=== PATIENT | male | born 1980 | race Caucasian/White ===

== ENCOUNTER 2023-12-03 16:43 | Inpatient (IN) | payer MEDICARE, MEDICAID ==
--- NOTE | 2023-12-03 16:45 | ED ---
General Adult HPI - General Source: patient, police Mode of arrival: ambulatory Limitations: no limitations <Zia Camacho - Last Filed: 12/03/23 23:22> <Yesi Iqbal - Last Filed: 12/10/23 00:08> - General Stated complaint: Petitioned/Mental health Time Seen by Provider: 12/03/23 16:44 - History of Present Illness Initial comments: 43-year-old male presenting with mental health petition (Zia Camacho) 43-year-old male with past medical history of alcoholism who presents emergency department with police. Patient was in the park. He was significantly intoxicated. He was stating that he was suicidal and was also threatening to harm some children that were in the park. Bystanders called EMS. Patient states he has been hospitalized multiple times for his mental health as well as for his alcoholism. He states he is homeless and jobless. He is hopeless and wants to . He denies attempting to harm himself. He does admit to harm others. Patient admits to drinking heavily today. No other alleviating, precipitating modifying factors (Yesi Iqbal) - Related Data Home Medications Medication Instructions Recorded Confirmed DULoxetine HCL [Cymbalta] 30 mg PO DAILY 12/04/23 12/04/23 oxyCODONE-APAP 10-325MG [Percocet 1 tab PO Q8H PRN 12/04/23 12/04/23 10-325 mg] Allergies Allergy/AdvReac Type Severity Reaction Status Date / Time ibuprofen [From Motrin] Allergy Rash/Hives Verified 12/04/23 12:00 Review of Systems ROS Other: All systems not noted in ROS Statement are negative. <Zia Camacho - Last Filed: 12/03/23 23:22> ROS Other: All systems not noted in ROS Statement are negative. <Yesi Iqbal - Last Filed: 12/10/23 00:08> ROS Statement: Those systems with pertinent positive or pertinent negative responses have been documented in the HPI. General Exam <Zia Camacho - Last Filed: 12/03/23 23:22> General appearance: alert, appears intoxicated Head exam: Present: atraumatic, normocephalic, normal inspection Eye exam: Present: normal appearance, PERRL, EOMI. Absent: scleral icterus, conjunctival injection, periorbital swelling ENT exam: Present: normal exam, mucous membranes moist Neck exam: Present: normal inspection. Absent: tenderness, meningismus, lymphadenopathy Respiratory exam: Present: normal lung sounds bilaterally. Absent: respiratory distress, wheezes, rales, rhonchi, stridor Cardiovascular Exam: Present: regular rate, normal rhythm, normal heart sounds. Absent: systolic murmur, diastolic murmur, rubs, gallop, clicks GI/Abdominal exam: Present: soft, normal bowel sounds. Absent: distended, te nderness, guarding, rebound, rigid Extremities exam: Present: normal inspection, full ROM, normal capillary refill. Absent: tenderness, pedal edema, joint swelling, calf tenderness Back exam: Present: normal inspection Neurological exam: Present: alert, oriented X3, CN II-XII intact Psychiatric exam: Present: depressed, agitated Skin exam: Present: warm, dry, intact, normal color. Absent: rash <Yesi Iqbal - Last Filed: 12/10/23 00:08> - General Exam Comments Initial Comments: Visual Physical Exam Vital signs reviewed General: Well-appearing, nontoxic, no acute distress. Head: Normocephalic, atraumatic Eyes: PERRLA, EOMI ENT: Airway patent Chest: Nonlabored breathing Skin: No visual rash, normal skin tone Neuro: Alert and oriented 3 Musculoskeletal: No gross abnormalities (Zia Camacho) Course Vital Signs 12/03/23 12/04/23 12/04/23 16:46 08:43 17:28 Temperature 97.9 F 98.2 F Pulse Rate 97 98 74 Pulse Rate [ Right Sitting Pulse Oximetery ] Respiratory 18 16 16 Rate Blood Pressure 190/121 167/100 100/60 Blood Pressure [Right Arm Sitting] O2 Sat by Pulse 96 97 97 Oximetry 12/04/23 18:15 Temperature 97.8 F Pulse Rate Pulse Rate [ 82 Right Sitting Pulse Oximetery ] Respiratory 18 Rate Blood Pressure Blood Pressure 119/66 [Right Arm Sitting] O2 Sat by Pulse 96 Oximetry Medical Decision Making <Zia Camacho - Last Filed: 12/03/23 23:22> - Lab Data Result diagrams: 12/04/23 15:43 12/04/23 15:43 <Yesi Iqbal - Last Filed: 12/10/23 00:08> - Medical Decision Making I performed the quick note portion of this visit, electronically signed Zia Camacho PA-C (Zia Camacho) Was pt. sent in by a medical professional or institution (GINO Varela, RADIOISOTOPE TECHNOLOGIST, urgent care, hospital, or jail...) When possible be specific @ -Patient brought in by police Did you speak to anyone other than the patient for history (EMS, parent, family, police, friend...)? What history was obtained from this source @ -Police Did you review nursing and triage notes (agree or disagree)? Why? @ -I reviewed and agree with nursing and triage notes Were old charts reviewed (outside hosp., previous admission, EMS record, old EKG, old radiological studies, urgent care reports/EKG's, jail records)? Report findings @ -No old charts were reviewed Differential Diagnosis (chest pain, altered mental status, abdominal pain women, abdominal pain men, vaginal bleeding, weakness, fever, dyspnea, syncope, headache, dizziness, GI bleed, back pain, seizure, CVA, palpatations, mental health, musculoskeletal)? @ -Differential Mental Health Depression, anxiety, bipolar, psychosis, schizophrenia, borderline personality, situational depression, adjustment disorder, behavioral disorder, brain tumor, malingering, substance abuse, encephalopathy, medication reaction, dementia, hypothyroidism, degenerative neurologic disorder, lupus.... This is not meant to be all-inclusive list EKG interpreted by me (3pts min.). @ -Not done X-rays interpreted by me (1pt min.). @ -None done CT interpreted by me (1pt min.). @ -None done U/S interpreted by me (1pt. min.). @ -None done What testing was considered but not performed or refused? (CT, X-rays, U/S, labs)? Why? @ -None What meds were considered but not given or refused? Why? @ -None Did you discuss the management of the patient with other professionals (professionals i.e. GINO Varela, RADIOISOTOPE TECHNOLOGIST, lab, RT, psych nurse, vp digital marketing social media and crm, cold roller, teacher, alumni relations officer, window caser)? Give summary @- Spoke with the EPS nurse Was smoking cessation discussed for >3mins.? @ -No Was critical care preformed (if so, how long)? @ -No Were there social determinants of health that impacted care today? How? (Homelessness, low income, unemployed, alcoholism, drug addiction, transportation, low edu. Level, literacy, decrease access to med. care, fci, rehab)? @ -Homelessness, alcoholism Was there de-escalation of care discussed even if they declined (Discuss DNR or withdrawal of care, Hospice)? DNR status @ -No What co-morbidities impacted this encounter? (DM, HTN, Smoking, COPD, CAD, Cancer, CVA, ARF, Chemo, Hep., AIDS, mental health diagnosis, sleep apnea, morbid obesity)? @ -Alcoholism Was patient admitted / discharged? Hospital course, mention meds given and route, prescriptions, significant lab abnormalities, going to OR and other pertinent info. @ -Upon arrival patient was seen and evaluated in room 13. Thorough history and physical exam was performed. Patient is petitioned. We do await sobriety and have EPS evaluate the patient. Patient requires admission. Undiagnosed new problem with uncertain prognosis? @ -No Drug Therapy requiring intensive monitoring for toxicity (Heparin, Nitro, Insulin, Cardizem)? @ -No Were any procedures done? @ -No Diagnosis/symptom? @ -Acute depression, acute alcohol intoxication, suicidal ideations Acute, or Chronic, or Acute on Chronic? @ -Acute Uncomplicated (without systemic symptoms) or Complicated (systemic symptoms)? @ -Complicated Side effects of treatment? @ -No Exacerbation, Progression, or Severe Exacerbation? @ -No Poses a threat to life or bodily function? How? (Chest pain, USA, AR, pneumonia, PE, COPD, DKA, ARF, appy, cholecystitis, CVA, Diverticulitis, Homicidal, Suicidal, threat to staff... and all critical care pts) @ -Yes patient is suicidal (Yesi Iqbal) - Lab Data Lab Results 12/03/23 12/03/23 12/04/23 Range/Units 18:14 19:50 13:28 WBC (3.8-10.6) k/uL RBC (4.30-5.90) m/uL Hgb (13.0-17.5) gm/dL Hct (39.0-53.0) % MCV (80.0-100.0) fL MCH (25.0-35.0) pg MCHC (31.0-37.0) g/dL RDW (11.5-15.5) % Plt Count (150-450) k/uL MPV Neutrophils % % Lymphocytes % % Monocytes % % Eosinophils % % Basophils % % Neutrophils # (1.3-7.7) k/uL Lymphocytes # (1.0-4.8) k/uL Monocytes # (0-1.0) k/uL Eosinophils # (0-0.7) k/uL Basophils # (0-0.2) k/uL Sodium (137-145) mmol/L Potassium (3.5-5.1) mmol/L Chloride (98-107) mmol/L Carbon Dioxide (22-30) mmol/L Anion Gap mmol/L BUN (9-20) mg/dL Creatinine (0.66-1.25) mg/dL Est GFR (CKD-EPI)AfAm (>60 ml/min/1.73 sqM) Est GFR (CKD-EPI)NonAf (>60 ml/min/1.73 sqM) Glucose (74-99) mg/dL Estimated Ave Glu mg/dL mg/dL Hemoglobin A1c (<=6.0) % Calcium (8.4-10.2) mg/dL Total Bilirubin (0.2-1.3) mg/dL AST (17-59) U/L ALT (4-49) U/L Alkaline Phosphatase (38-126) U/L Total Protein (6.3-8.2) g/dL Albumin (3.5-5.0) g/dL Triglycerides (0.00-149.00) mg/dL Cholesterol (0.00-200.00) mg/dL LDL Cholesterol, Calc (0.0-131.0) mg/dL VLDL Cholesterol, Calc (5.00-40.00) mg/dL HDL Cholesterol (40.00-60.00) mg/dL Cholesterol/HDL Ratio Ratio TSH (0.465-4.680) mIU/L Urine Color Colorless Urine Appearance Clear (Clear) Urine pH 6.0 (5.0-8.0) Ur Specific [place] 1.010 (1.001-1.035) Urine Protein Negative (Negative) Urine Glucose (UA) Negative (Negative) Urine Ketones Negative (Negative) Urine Blood Negative (Negative) Urine Nitrite Negative (Negative) Urine Bilirubin Negative (Negative) Urine Urobilinogen <2.0 (<2.0) mg/dL Ur Leukocyte Esterase Negative (Negative) Urine Opiates Screen Not Detected (NotDetected) Ur Oxycodone Screen Not Detected (NotDetected) Urine Methadone Screen Not Detected (NotDetected) Ur Barbiturates Screen Not Detected (NotDetected) U Tricyclic Antidepress Not Detected (NotDetected) Ur Phencyclidine Scrn Not Detected (NotDetected) Ur Amphetamines Screen Not Detected (NotDetected) U Methamphetamines Scrn Not Detected (NotDetected) U Benzodiazepines Scrn Not Detected (NotDetected) Urine Cocaine Screen Not Detected (NotDetected) U Marijuana (THC) Screen Detected H (NotDetected) Serum Alcohol 290 H* mg/dL Influenza Type A (PCR) Not Detected (Not Detectd) Influenza Type B (PCR) Not Detected (Not Detectd) RSV (PCR) Not Detected (Not Detectd) SARS-CoV-2 (PCR) Not Detected (Not Detectd) 12/04/23 12/04/23 12/04/23 Range/Units 15:43 15:43 15:43 WBC 5.9 (3.8-10.6) k/uL RBC 4.67 (4.30-5.90) m/uL Hgb 13.8 (13.0-17.5) gm/dL Hct 40.6 (39.0-53.0) % MCV 86.9 (80.0-100.0) fL MCH 29.5 (25.0-35.0) pg MCHC 33.9 (31.0-37.0) g/dL RDW 13.7 (11.5-15.5) % Plt Count 188 (150-450) k/uL MPV 8.0 Neutrophils % 54 % Lymphocytes % 28 % Monocytes % 11 % Eosinophils % 4 % Basophils % 1 % Neutrophils # 3.2 (1.3-7.7) k/uL Lymphocytes # 1.7 (1.0-4.8) k/uL Monocytes # 0.6 (0-1.0) k/uL Eosinophils # 0.2 (0-0.7) k/uL Basophils # 0.0 (0-0.2) k/uL Sodium 140 (137-145) mmol/L Potassium 4.1 (3.5-5.1) mmol/L Chloride 106 (98-107) mmol/L Carbon Dioxide 28 (22-30) mmol/L Anion Gap 6 mmol/L BUN 15 (9-20) mg/dL Creatinine 0.73 (0.66-1.25) mg/dL Est GFR (CKD-EPI)AfAm >90 (>60 ml/min/1.73 sqM) Est GFR (CKD-EPI)NonAf >90 (>60 ml/min/1.73 sqM) Glucose 138 H (74-99) mg/dL Estimated Ave Glu mg/dL 120 mg/dL Hemoglobin A1c 5.8 (<=6.0) % Calcium 8.9 (8.4-10.2) mg/dL Total Bilirubin 0.7 (0.2-1.3) mg/dL AST 65 H (17-59) U/L ALT 45 (4-49) U/L Alkaline Phosphatase 66 (38-126) U/L Total Protein 6.5 (6.3-8.2) g/dL Albumin 3.9 (3.5-5.0) g/dL Triglycerides 52.80 (0.00-149.00) mg/dL Cholesterol 131.00 (0.00-200.00) mg/dL LDL Cholesterol, Calc 57.2 (0.0-131.0) mg/dL VLDL Cholesterol, Calc 10.56 (5.00-40.00) mg/dL HDL Cholesterol 63.20 H (40.00-60.00) mg/dL Cholesterol/HDL Ratio 2.07 Ratio TSH 0.228 L (0.465-4.680) mIU/L Urine Color Urine Appearance (Clear) Urine pH (5.0-8.0) Ur Specific [place] (1.001-1.035) Urine Protein (Negative) Urine Glucose (UA) (Negative) Urine Ketones (Negative) Urine Blood (Negative) Urine Nitrite (Negative) Urine Bilirubin (Negative) Urine Urobilinogen (<2.0) mg/dL Ur Leukocyte Esterase (Negative) Urine Opiates Screen (NotDetected) Ur Oxycodone Screen (NotDetected) Urine Methadone Screen (NotDetected) Ur Barbiturates Screen (NotDetected) U Tricyclic Antidepress (NotDetected) Ur Phencyclidine Scrn (NotDetected) Ur Amphetamines Screen (NotDetected) U Methamphetamines Scrn (NotDetected) U Benzodiazepines Scrn (NotDetected) Urine Cocaine Screen (NotDetected) U Marijuana (THC) Screen (NotDetected) Serum Alcohol mg/dL Influenza Type A (PCR) (Not Detectd) Influenza Type B (PCR) (Not Detectd) RSV (PCR) (Not Detectd) SARS-CoV-2 (PCR) (Not Detectd) Disposition <Zia Camacho - Last Filed: 12/03/23 23:22> Is patient prescribed a controlled substance at d/c from ED?: No <Yesi Iqbal - Last Filed: 12/10/23 00:08> Clinical Impression: Depression, Suicidal ideation Disposition: ADMITTED IP TO THIS HOSP Condition: Good
[2023-12-03] MEDS: OLANZapine 10 MG VIAL IM STA (18:05)
[2023-12-03 18:37] LABS: Appearance,Urine Clear (Clear); Bilirubin,Urine Negative (Negative); Blood,Urine Negative (Negative); Color,Urine Colorless; Glucose,Urine (UA) Negative (Negative); Ketones,Urine Negative (Negative); Leukocyte Esterase,Urine Negative (Negative); Nitrite,Urine Negative (Negative); Protein,Urine Negative (Negative); Urobilinogen,Urine <2.0 mg/dL (<2.0)
[2023-12-03 19:44] LABS: Amphetamine Screen,Urine Not Detected (NotDetected); Barbiturate Screen,Urine Not Detected (NotDetected); Benzodiazepines Screen,Urine Not Detected (NotDetected); Cocaine Screen,Urine Not Detected (NotDetected); Methadone Screen, Urine Not Detected (NotDetected); Opiate Screen,Urine Not Detected (NotDetected); Oxycodone Screen, Urine Not Detected (NotDetected); Phencyclidine Screen,Urine Not Detected (NotDetected); Tricyclic Antidepressant,Urine Not Detected (NotDetected); Urn Cannabinoid Scrn Detected (NotDetected)
[2023-12-04] MEDS ORDERED: LORazepam 0.5 MG TAB PO PRN (01:48)
[2023-12-04] MEDS ORDERED: LORazepam 1 MG TAB PO PRN ×3 (01:48→17:48)
[2023-12-04] MEDS: THIAMINE 100 MG/ML 2 ML VIAL IM STA (03:13)
[2023-12-04] MEDS: LORazepam 1 MG TAB PO PRN ×3 (08:41→21:41)
[2023-12-04 15:56] LABS: Basophils % (A) 1 %; Eosinophils # (A) 0.2 k/uL (0-0.7); Eosinophils % (A) 4 %; HCT 40.6 % (39.0-53.0); HGB 13.8 gm/dL (13.0-17.5); Lymphocytes # (A) 1.7 k/uL (1.0-4.8); Lymphocytes % (A) 28 %; MCH 29.5 pg (25.0-35.0); MCHC 33.9 g/dL (31.0-37.0); MCV 86.9 fL (80.0-100.0); Monocytes # (A) 0.6 k/uL (0-1.0); Monocytes % (A) 11 %; Neutrophils # (A) 3.2 k/uL (1.3-7.7); Neutrophils % (A) 54 %; Platelet Count 188 k/uL (150-450); RBC 4.67 m/uL (4.30-5.90); RDW 13.7 % (11.5-15.5); WBC 5.9 k/uL (3.8-10.6)
[2023-12-04 16:10] LABS: ALT 45 U/L (4-49); AST 65 U/L (17-59); African American GFR (CKD) >90 (>60 ml/min/1.73 sqM); Albumin 3.9 g/dL (3.5-5.0); Alkaline Phosphatase 66 U/L (38-126); Anion Gap 6 mmol/L; Blood Urea Nitrogen 15 mg/dL (9-20); Calcium 8.9 mg/dL (8.4-10.2); Carbon Dioxide 28 mmol/L (22-30); Chloride 106 mmol/L (98-107); Glucose 138 mg/dL (74-99); Non-African American GFR(CKD) >90 (>60 ml/min/1.73 sqM); Potassium 4.1 mmol/L (3.5-5.1); Sodium 140 mmol/L (137-145); Total Bilirubin 0.7 mg/dL (0.2-1.3); Total Protein 6.5 g/dL (6.3-8.2)
[2023-12-04] MEDS ORDERED: MAGNESIUM HYDROXIDE 2,400 MG/30 ML CUP PO PRN (17:48)
[2023-12-04] MEDS ORDERED: ACETAMINOPHEN TAB 325 MG TAB PO PRN (17:48)
[2023-12-04] MEDS ORDERED: MAG HYDROX/AL HYDROX/SIMETH 355 ML BOTTLE PO PRN (17:48)
[2023-12-04] MEDS ORDERED: HALOPERIDOL LACTATE 5 MG/ML 1 ML VIAL IM PRN (17:48)
[2023-12-04] MEDS ORDERED: LORazepam 2 MG/ML INJ IM PRN (17:48)
[2023-12-04] MEDS ORDERED: haloperidoL 5 MG TAB PO PRN (17:48)
[2023-12-04 19:03] VITALS: TEMP 97.8
[2023-12-05 02:31] LABS: Chol/HDL Ratio 2.07 Ratio; LDL Cholesterol,Calculated 57.2 mg/dL (0.0-131.0); VLDL Calculation 10.56 mg/dL (5.00-40.00)
[2023-12-05] MEDS: DULoxetine HCL 30 MG CAPSULE.DR PO SCH (08:37)
[2023-12-05] MEDS: NICOTINE 14MG/24HR PATCH TRANSDERM SCH (08:47)
[2023-12-05] MEDS: NICOTINE GUM (POLACRILEX) 2 MG GUM BUCCAL PRN (09:00)
[2023-12-05] MEDS ORDERED: THIAMINE 100 MG TAB PO SCH (09:00)
--- NOTE | 2023-12-05 12:02 | P.HP ---
Psychiatric H&P - . H&P Date: 12/05/23 History & Physical: Allergies Allergy/AdvReac Type Severity Reaction Status Date / Time ibuprofen [From Motrin] Allergy Rash/Hives Verified 12/04/23 12:00 Vital Signs Temp 97.8 F 12/04/23 18:15 Pulse 75 12/05/23 08:40 Resp 18 12/04/23 18:15 BP 113/76 12/05/23 08:40 Pulse Ox 96 12/04/23 18:15 FiO2 Laboratory Last Values WBC 5.9 k/uL (3.8-10.6) 12/04/23 15:43 RBC 4.67 m/uL (4.30-5.90) 12/04/23 15:43 Hgb 13.8 gm/dL (13.0-17.5) 12/04/23 15:43 Hct 40.6 % (39.0-53.0) 12/04/23 15:43 MCV 86.9 fL (80.0-100.0) 12/04/23 15:43 MCH 29.5 pg (25.0-35.0) 12/04/23 15:43 MCHC 33.9 g/dL (31.0-37.0) 12/04/23 15:43 RDW 13.7 % (11.5-15.5) 12/04/23 15:43 Plt Count 188 k/uL (150-450) 12/04/23 15:43 MPV 8.0 12/04/23 15:43 Neutrophils % 54 % 12/04/23 15:43 Lymphocytes % 28 % 12/04/23 15:43 Monocytes % 11 % 12/04/23 15:43 Eosinophils % 4 % 12/04/23 15:43 Basophils % 1 % 12/04/23 15:43 Neutrophils # 3.2 k/uL (1.3-7.7) 12/04/23 15:43 Lymphocytes # 1.7 k/uL (1.0-4.8) 12/04/23 15:43 Monocytes # 0.6 k/uL (0-1.0) 12/04/23 15:43 Eosinophils # 0.2 k/uL (0-0.7) 12/04/23 15:43 Basophils # 0.0 k/uL (0-0.2) 12/04/23 15:43 Sodium 140 mmol/L (137-145) 12/04/23 15:43 Potassium 4.1 mmol/L (3.5-5.1) 12/04/23 15:43 Chloride 106 mmol/L (98-107) 12/04/23 15:43 Carbon Dioxide 28 mmol/L (22-30) 12/04/23 15:43 Anion Gap 6 mmol/L 12/04/23 15:43 BUN 15 mg/dL (9-20) 12/04/23 15:43 Creatinine 0.73 mg/dL (0.66-1.25) 12/04/23 15:43 Est GFR (CKD-EPI)AfAm >90 (>60 ml/min/1.73 sqM) 12/04/23 15:43 Est GFR (CKD-EPI)NonAf >90 (>60 ml/min/1.73 sqM) 12/04/23 15:43 Glucose 138 mg/dL (74-99) H 12/04/23 15:[address] Glu mg/dL 120 mg/dL 12/04/23 15:43 Hemoglobin A1c 5.8 % (<=6.0) 12/04/23 15:43 Calcium 8.9 mg/dL (8.4-10.2) 12/04/23 15:43 Total Bilirubin 0.7 mg/dL (0.2-1.3) 12/04/23 15:43 AST 65 U/L (17-59) H 12/04/23 15:43 ALT 45 U/L (4-49) 12/04/23 15:43 Alkaline Phosphatase 66 U/L (38-126) 12/04/23 15:43 Total Protein 6.5 g/dL (6.3-8.2) 12/04/23 15:43 Albumin 3.9 g/dL (3.5-5.0) 12/04/23 15:43 Triglycerides 52.80 mg/dL (0.00-149.00) 12/04/23 15:43 Cholesterol 131.00 mg/dL (0.00-200.00) 12/04/23 15:43 LDL Cholesterol, Calc 57.2 mg/dL (0.0-131.0) 12/04/23 15:43 VLDL Cholesterol, Calc 10.56 mg/dL (5.00-40.00) 12/04/23 15:43 HDL Cholesterol 63.20 mg/dL (40.00-60.00) H 12/04/23 15:43 Cholesterol/HDL Ratio 2.07 Ratio 12/04/23 15:43 TSH 0.228 mIU/L (0.465-4.680) L 12/04/23 15:43 Urine Color Colorless 12/03/23 18:14 Urine Appearance Clear (Clear) 12/03/23 18:14 Urine pH 6.0 (5.0-8.0) 12/03/23 18:14 Ur Specific [place] 1.010 (1.001-1.035) 12/03/23 18:14 Urine Protein Negative (Negative) 12/03/23 18:14 Urine Glucose (UA) Negative (Negative) 12/03/23 18:14 Urine Ketones Negative (Negative) 12/03/23 18:14 Urine Blood Negative (Negative) 12/03/23 18:14 Urine Nitrite Negative (Negative) 12/03/23 18:14 Urine Bilirubin Negative (Negative) 12/03/23 18:14 Urine Urobilinogen <2.0 mg/dL (<2.0) 12/03/23 18:14 Ur Leukocyte Esterase Negative (Negative) 12/03/23 18:14 Urine Opiates Screen Not Detected (NotDetected) 12/03/23 18:14 Ur Oxycodone Screen Not Detected (NotDetected) 12/03/23 18:14 Urine Methadone Screen Not Detected (NotDetected) 12/03/23 18:14 Ur Barbiturates Screen Not Detected (NotDetected) 12/03/23 18:14 U Tricyclic Antidepress Not Detected (NotDetected) 12/03/23 18:14 Ur Phencyclidine Scrn Not Detected (NotDetected) 12/03/23 18:14 Ur Amphetamines Screen Not Detected (NotDetected) 12/03/23 18:14 U Methamphetamines Scrn Not Detected (NotDetected) 12/03/23 18:14 U Benzodiazepines Scrn Not Detected (NotDetected) 12/03/23 18:14 Urine Cocaine Screen Not Detected (NotDetected) 12/03/23 18:14 U Marijuana (THC) Screen Detected (NotDetected) H 12/03/23 18:14 Serum Alcohol 290 mg/dL H* 12/03/23 19:50 Influenza Type A (PCR) Not Detected (Not Detectd) 12/04/23 13:28 Influenza Type B (PCR) Not Detected (Not Detectd) 12/04/23 13:28 RSV (PCR) Not Detected (Not Detectd) 12/04/23 13:28 SARS-CoV-2 (PCR) Not Detected (Not Detectd) 12/04/23 13:28 12/05/23 11:57 Active Medications Acetaminophen (Acetaminophen Tab 325 Mg Tab) 650 mg PO Q4HR PRN PRN Reason: Mild Pain (Scale 1 to 3) Al Hydroxide/Mg Hydroxide (Mag Hydrox/Al Hydrox/Simeth 355 Ml Bottle) 30 ml PO Q4HR PRN PRN Reason: GI Upset Chlordiazepoxide HCl (Chlordiazepoxide 10 Mg Cap) 30 mg PO TID [facility] Last Admin: 12/05/23 09:01 Dose: 30 mg Duloxetine HCl (Duloxetine Hcl 30 Mg Capsule.Dr) 30 mg PO DAILY [facility] Last Admin: 12/05/23 08:37 Dose: 30 mg Haloperidol (Haloperidol 5 Mg Tab) 5 mg PO Q6HR PRN PRN Reason: Agitation or Acute Psychosis Haloperidol Lactate (Haloperidol Lactate 5 Mg/Ml 1 Ml Vial) 5 mg IM Q6HR PRN PRN Reason: Agitation or Acute Psychosis Lorazepam (Lorazepam 1 Mg Tab) 1 mg PO Q6HR PRN PRN Reason: Agitation or Acute Anxiety Lorazepam (Lorazepam 2 Mg/Ml Inj) 1 mg IM Q6HR PRN PRN Reason: Agitation or Acute Anxiety Lorazepam (Lorazepam 1 Mg Tab) 1 mg PO Q6HR PRN PRN Reason: CIWA 8 or 9 Lorazepam (Lorazepam 1 Mg Tab) 2 mg PO Q6HR PRN PRN Reason: Ciwa greater than 10 Last Admin: 12/05/23 08:39 Dose: 2 mg Magnesium Hydroxide (Magnesium Hydroxide 2,400 Mg/30 Ml Cup) 2,400 mg PO DAILY PRN PRN Reason: Constipation Nicotine (Nicotine 14mg/24hr Patch) 1 patch TRANSDERM DAILY [facility] Last Admin: 12/05/23 08:47 Dose: Not Given Nicotine Polacrilex (Nicotine Gum (Polacrilex) 2 Mg Gum) 2 mg BUCCAL Q2HR PRN PRN Reason: Nicotine Cravings Last Admin: 12/05/23 11:06 Dose: 2 mg This is a psychiatric assessment on Param Hurd was a 43-year-old male and hopeless that he has had over 30 hospitalizations Patient reports that he has been in and out of institutions and that he is unable to function adequately due to his alcohol and substance use problems Patient initially reported that he had stopped using drugs but when on further inquiry states that he had used heroin about a week ago Patient was picked up by the police for a local park where he was found to be intoxicated Patient also had reported that he was suicidal and was also threatening to harm some children never park Bystanders called EMS. Patient states he has been hospitalized multiple times for his mental health as well as for his alcoholism. He states he is homeless and jobless. He is hopeless and wants to . He denies attempting to harm himself. He does admit to harm others. Patient admits to drinking heavily before the hospitalization No other alleviating, precipitating modifying factors He says that he is currently homeless, staying with his son for Past history personal social history is as described above She remains very vague and superficial historian Patient stated that he currently takes Cymbalta Mental status exam: General Appearance: Patient appears to be stated age, unkempt and dirty looking Behavior: Patient is loud and demanding Speech: Patient's speech is fluent and non-pressured. Mood/Affect: Patient reports his mood is fair", affect is congruent and constricted. Suicidality/Homicidality: Patient denies having any homicidal ideation intent or plan. Denies any suicidal ideation, intent or plan today. Perceptions: Patient denies any visual hallucinations and denies any auditory hallucinations. Though content/process: There is no evidence of any delusional thought content and thought process is linear and goal-directed. Memory and concentration: AOX3, grossly intact for the purposes of this session. Can spell "WORLD" backwards Judgment and insight: Impaired Diagnostic impression: Adjustment disorder with disturbance of affect and conduct Bipolar disorder mixed type Alcohol use disorder Polysubstance use disorder that includes stimulants benzos and opiates Personality disorder with antisocial borderline traits Assessment/Plan: Continue with current diagnosis. Patient continues to meet criteria for inpatient psychiatric admission for symptom stabilization and safety.. Continue other meds as ordered. Monitor for medication compliance and for any psychotropic medication side effects. Will continue to monitor ongoing response to treatment. Encouraged participation in milieu. transportation services representative on board for discharge planning Encourage the patient to participate in on the licea activities Tawanda Melgoza M.D.
[2023-12-05] MEDS: LORazepam 1 MG TAB PO PRN (14:45)
[2023-12-06 07:30] VITALS: BP 112/78; PULSE 81; RESP 16
--- NOTE | 2023-12-06 09:05 | P.DS ---
Providers Date of admission: 12/04/23 17:18 Attending physician: Adis Washburn MD Consults: 12/04/23 17:48 Consult Physician Routine Consulting Provider: Jessica Physician Consult Reason/Comments: H&P and medical Do you want consulting provider notified?: Yes Primary care physician: Physician Nonstaff - Discharge Diagnosis(es) (1) Acute psychosis Current Visit: Yes Status: Suspected Priority: Low (2) Acute psychosis Current Visit: Yes Status: Suspected Priority: Low Hospital Course: The patient at this time has improved where further treatment could be continued at a residential facility Patient has been accepted at the residential place where he plans to go. Mental status remained stable When seen today patient was pleasant and cooperative covered relevant He says is looking forward to ongoing treatment and staying in a safe place Patient does not exhibit any signs of any overt psychosis Denies any suicidal or homicidal ideations Formal and operational judgment appears to be fair Patient does seem to have some insight and his problem He was discharged in stable condition with recommendation follow-up as directed Tawanda Melgoza M.D. Patient Condition at Discharge: Good Plan - Discharge Summary Discharge Rx Participant: No New Discharge Prescriptions: No Action DULoxetine HCL [Cymbalta] 30 mg PO DAILY oxyCODONE-APAP 10-325MG [Percocet 10-325 mg] 1 tab PO Q8H PRN PRN Reason: Pain Discharge Medication List DULoxetine HCL [Cymbalta] 30 mg PO DAILY 12/04/23 [History] oxyCODONE-APAP 10-325MG [Percocet 10-325 mg] 1 tab PO Q8H PRN 12/04/23 [History] Follow up Appointment(s)/Referral(s): [facility] [Outside] - 1 Week [facility] [NON-STAFF] - 1 Week Patient Instructions/Handouts: How to Stop Smoking (ED), Bipolar Disorder (DC), Abuse of Alcohol (ED), Polysubstance Abuse (ED), Borderline Personality Disorder (GEN) Activity/Diet/Wound Care/Special Instructions: Avoid the use of street drugs and alcohol. Take all medications as prescribed. When you are in need of refills on your medications, please contact your medical provider and/or outpatient psychiatrist/provider to have this done. Please go to your scheduled outpatient appointment for aftercare treatment. If symptoms return or become worse, call the crisis line at and/or go to the nearest emergency room for evaluation. National Suicide Hotline 988. Discharge/Stand Alone Forms: AA Meetings Dist 22 & 24 - [facility]
== END 2023-12-06 09:59 | disposition other institution (70) | DRG 885 ==
LOC: EC 16:43 → 3MHU 12-04 17:18
PROVIDERS: ADMIT Psychiatry & Neurology Psychiatry; ATTEND Psychiatry & Neurology Psychiatry
DX: F23 Brief psychotic disorder (principal); Z59.00 Homelessness unspecified; R45.851 Suicidal ideations; R45.850 Homicidal ideations; F31.60 Bipolar disorder, current episode mixed, unspecified; F10.229 Alcohol dependence with intoxication, unspecified; F43.24 Adjustment disorder with disturbance of conduct; F60.2 Antisocial personality disorder; Z11.52 Encounter for screening for COVID-19; Z28.310 Unvaccinated for COVID-19; Y90.8 Blood alcohol level of 240 mg/100 ml or more; Z59.6 Low income; F17.210 Nicotine dependence, cigarettes, uncomplicated; Z71.6 Tobacco abuse counseling; Z79.899 Other long term (current) drug therapy; Z56.0 Unemployment, unspecified; Z88.6 Allergy status to analgesic agent
CPT/HCPCS: 36415; 80053; 80061; 80306; 80320; 81003; 83036; 84443; 85025; 87636; 96372; 99285

== ENCOUNTER 2024-10-21 20:00 | Inpatient (IN) | payer MEDICAID, MEDICARE, OTHER ==
[2024-10-21 20:25] VITALS: BP 115/60; PULSE 82; RESP 18; TEMP 97.8
[2024-10-21 22:20] LABS: Cocaine Screen,Urine Not Detected (NotDetected); Opiate Screen,Urine Detected (NotDetected); Phencyclidine Screen,Urine Not Detected (NotDetected); Urn Cannabinoid Scrn Detected (NotDetected)
[2024-10-21 22:21] LABS: Amphetamine Screen,Urine Not Detected (NotDetected); Barbiturate Screen,Urine Not Detected (NotDetected); Benzodiazepines Screen,Urine Detected (NotDetected); Methadone Screen, Urine Not Detected (NotDetected); Oxycodone Screen, Urine Not Detected (NotDetected); Tricyclic Antidepressant,Urine Not Detected (NotDetected)
[2024-10-21 22:23] LABS: Influenza A Not Detected (Not Detectd); Influenza B Not Detected (Not Detectd); RSV Not Detected (Not Detectd)
--- NOTE | 2024-10-21 22:54 | ED ---
General Adult HPI - General Chief complaint: Psychiatric Symptoms Stated complaint: Mental Health Time Seen by Provider: 10/21/24 22:03 Source: patient Mode of arrival: ambulatory - History of Present Illness Initial comments: Patient is a 44-year-old male with past medical history schizoaffective disorder, drug use, prior [place] presenting today for suicidal lesion. Petitioned by police. Patient states that he was at [facility] earlier today for chest pain, they wanted to do an ultrasound of his heart so he left. He returned there later this evening" they gave me a bunch of medications including Ativan" when I woke up they kicked me out. Patient states he is have intermittent left-sided sharp chest pain that radiates down his arm. Currently denies shortness of breath, hemoptysis, nausea, vomiting, melena, medic easier. Suicidal ideation, stating that if he left here right now he would walk into traffic. - Related Data Home Medications Medication Instructions Recorded Confirmed DULoxetine HCL [Cymbalta] 30 mg PO DAILY 12/04/23 12/04/23 oxyCODONE-APAP 10-325MG [Percocet 1 tab PO Q8H PRN 12/04/23 12/04/23 10-325 mg] Allergies Allergy/AdvReac Type Severity Reaction Status Date / Time ibuprofen [From Motrin] Allergy Rash/Hives Verified 10/21/24 20:25 Review of Systems ROS Statement: Those systems with pertinent positive or pertinent negative responses have been documented in the HPI. ROS Other: All systems not noted in ROS Statement are negative. Past Medical History Past Medical History: Myocardial Infarction ([place]), Skin Disorder Additional Past Medical History / Comment(s): "bad prostate" , eczema Last Myocardial Infarction Date:: unknown History of Any Multi-Drug Resistant Organisms: None Reported Past Surgical History: Heart Catheterization With Stent Additional Past Surgical History / Comment(s): stent x1 Past Anesthesia/Blood Transfusion Reactions: No Reported Reaction Past Psychological History: ADD/ADHD, Depression, PTSD Smoking Status: Current every day smoker Past Alcohol Use History: Daily, Heavy Past Drug Use History: Cocaine, Heroin, IV Drug Use, Marijuana General Exam - General Exam Comments Initial Comments: PE: CONSTITUTIONAL: [no apparent distress, well appearing] SKIN: [warm, dry, no jaundice, hives or petechiae] EYES:[ pupils are equally round, extraocular movements intact without nystagmus, clear conjunctiva, non-icteric sclera] HENT: [normocephalic, atraumatic, moist mucus membranes, oropharynx clear without exudates] NECK: , [Full range of motion, normal appearance] PULMONARY: [clear to auscultation without wheezes, rhonchi, or rales, normal excursion, no accessory muscle use and no stridor] CARDIOVASCULAR:[ regular rate, rhythm, normal S1 and S2. No appreciated murmurs, rubs or gallops. Strong radial pulses with intact distal perfusion. No lower extremity edema] GASTROINTESTINAL: [soft, active bowel sounds throughout, non-tender, non- distended, no palpable masses, no rebound or guarding. No hepatosplenomegaly] GENITOURINARY: MUSCULOSKELETAL: [Extremities have no gross deformity, no edema, redness, or swelling. No calf swelling ] NEUROLOGIC: [_a/o x 3, GCS 15, normal mentation and speech. Moves all extremities x 4 without motor or sensory deficit] PSYCHIATRIC:[Somewhat angry mood and affect, thought process is linear, endorses suicidal ideation with plan to walk out of traffic] Course Vital Signs 10/21/24 20:19 Temperature 97.8 F Pulse Rate 82 Respiratory 18 Rate Blood Pressure 115/60 O2 Sat by Pulse 97 Oximetry EKG Findings - EKG Comments: EKG Findings:: Sinus bradycardia rate 59 bpm [place] interval 150 ms QT/QTc 468/467 ms, normal axis, no ST elevations or depressions, prolonged QT, no STEMI, no prior for comparison Medical Decision Making - Medical Decision Making Was pt. sent in by a medical professional or institution (, PA, INTAKE COUNSELOR, urgent care, hospital, or fci...) When possible be specific Patient was brought in by police Did you speak to anyone other than the patient for history (EMS, parent, family, police, friend...)? What history was obtained from this source @Petition by police Did you review nursing and triage notes (agree or disagree)? Why? @ -[I reviewed nursing and triage notes] Were old charts reviewed (outside hosp., previous admission, EMS record, old EKG, old radiological studies, urgent care reports/EKG's, fci records)? Report findings @ -[Medical records reviewed] Differential Diagnosis (chest pain, altered mental status, abdominal pain women, abdominal pain men, vaginal bleeding, weakness, fever, dyspnea, syncope, headache, dizziness, GI bleed, back pain, seizure, CVA, palpatations, mental health, musculoskeletal)? @Differential Chest Pain: Stable Angina, Unstable Angina, STEMI, NSTEMI Aortic Dissection, pericarditis, pleurisy, chostochondirits, Pneumothorax, Musculoskeletal, Esophageal Spasm GERD, Cholecystitis, Pancreatitis, Zoster, this is not meant to be an all- inclusive list. Differential Mental Health Depression, anxiety, bipolar, psychosis, schizophrenia, borderline personality, situational depression, adjustment disorder, behavioral disorder, brain tumor, malingering, substance abuse, encephalopathy, medication reaction, dementia, hypothyroidism, degenerative neurologic disorder, lupus.... This is not meant to be all-inclusive list EKG interpreted by me (3pts min.). @ -[As above] X-rays interpreted by me (1pt min.). @No Cardiomegaly, consolidations or pleural effusions CT interpreted by me (1pt min.). @ -[None done] U/S interpreted by me (1pt. min.). @ -[None done] What testing was considered but not performed or refused? (CT, X-rays, U/S, labs)? Why? @ -[None] What meds were considered but not given or refused? Why? @ -[None] Did you discuss the management of the patient with other professionals (professionals i.e. , PA, INTAKE COUNSELOR, lab, RT, psych nurse, community mental health social worker, residential housekeeper, teacher, executive officer, window caser)? Give summary @ -[No] Was smoking cessation discussed for >3mins.? @ -[No] Was critical care preformed (if so, how long)? @ -[No] Were there social determinants of health that impacted care today? How? (Homelessness, low income, unemployed, alcoholism, drug addiction, transport ation, low edu. Level, literacy, decrease access to med. care, long-term, rehab)? @ -[No] Was there de-escalation of care discussed even if they declined (Discuss DNR or withdrawal of care, Hospice)? @ -[No] What co-morbidities impacted this encounter? (DM, HTN, Smoking, COPD, CAD, Cancer, CVA, ARF, Chemo, Hep., AIDS, mental health diagnosis, sleep apnea, morbid obesity)? @Schizoaffective disorder, CAD Was patient admitted / discharged? Hospital course, mention meds given and route, prescriptions, significant lab abnormalities, going to OR and other pertinent info. @ -[hospital course] patient is a 44-year-old gentleman brought in by police after making suicidal comments in the parking lot of another hospital where he was discharged after being evaluated for chest pain. On my assessment patient does have an angry affect however he is able to be redirected and discussed this with me his chest pain, chronic back pain and suicidal ideation. Plan for troponin, EKG chest x-ray comprehensive labs, soleal nitroglycerin, morphine and EPS evaluation. Will obtain single troponin as patient's chest pain has been ongoing all day, would expect an elevation at this point if secondary to ACS. Labs and imaging reviewed. Grossly within normal limits. Abnormal values not concerning for acute pathology related to presenting complaint. Undiagnosed new problem with uncertain prognosis? @ -[No] Drug Therapy requiring intensive monitoring for toxicity (Heparin, Nitro, Insulin, Cardizem)? @ -[No] Were any procedures done? @ -[No] Diagnosis/symptom? @ -[default] Acute, or Chronic, or Acute on Chronic? @ -[default] Uncomplicated (without systemic symptoms) or Complicated (systemic symptoms)? @ -[default] Side effects of treatment? @ -[No] Exacerbation, Progression, or Severe Exacerbation? @ -[No] Poses a threat to life or bodily function? How? (Chest pain, [place], [place], pneumonia, PE, COPD, DKA, ARF, appy, cholecystitis, CVA, Diverticulitis, Homicidal, Suicidal, threat to staff... and all critical care pts) @ -[No] - Lab Data Result diagrams: 10/21/24 23:22 10/21/24 23:22 Lab Results 10/21/24 10/21/24 10/21/24 Range/Units 21:39 21:39 23:22 WBC 5.5 (3.8-10.6) k/uL RBC 5.13 (4.30-5.90) m/uL Hgb 14.5 (13.0-17.5) gm/dL Hct 43.7 (39.0-53.0) % MCV 85.1 (80.0-100.0) fL MCH 28.3 (25.0-35.0) pg MCHC 33.3 (31.0-37.0) g/dL RDW 13.9 (11.5-15.5) % Plt Count 208 (150-450) k/uL MPV 7.1 Neutrophils % 60 % Lymphocytes % 24 % Monocytes % 8 % Eosinophils % 4 % Basophils % 0 % Neutrophils # 3.3 (1.3-7.7) k/uL Lymphocytes # 1.3 (1.0-4.8) k/uL Monocytes # 0.4 (0-1.0) k/uL Eosinophils # 0.2 (0-0.7) k/uL Basophils # 0.0 (0-0.2) k/uL PT (10.0-12.5) sec INR (<1.2) APTT (22.0-30.0) sec Sodium (137-145) mmol/L Potassium (3.5-5.1) mmol/L Chloride (98-107) mmol/L Carbon Dioxide (22-30) mmol/L Anion Gap mmol/L BUN (9-20) mg/dL Creatinine (0.66-1.25) mg/dL Est GFR (CKD-EPI)AfAm (>60 ml/min/1.73 sqM) Est GFR (CKD-EPI)NonAf (>60 ml/min/1.73 sqM) Glucose (74-99) mg/dL Calcium (8.4-10.2) mg/dL Magnesium (1.6-2.3) mg/dL Total Bilirubin (0.2-1.3) mg/dL AST (17-59) U/L ALT (4-49) U/L Alkaline Phosphatase (38-126) U/L Troponin I (0.000-0.034) ng/mL Total Protein (6.3-8.2) g/dL Albumin (3.5-5.0) g/dL Lipase (23-300) U/L Urine Opiates Screen Detected H (NotDetected) Ur Oxycodone Screen Not Detected (NotDetected) Urine Methadone Screen Not Detected (NotDetected) Ur Barbiturates Screen Not Detected (NotDetected) U Tricyclic Antidepress Not Detected (NotDetected) Ur Phencyclidine Scrn Not Detected (NotDetected) Ur Amphetamines Screen Not Detected (NotDetected) U Methamphetamines Scrn Not Detected (NotDetected) U Benzodiazepines Scrn Detected H (NotDetected) Urine Cocaine Screen Not Detected (NotDetected) U Marijuana (THC) Screen Detected H (NotDetected) Serum Alcohol mg/dL Influenza Type A (PCR) Not Detected (Not Detectd) Influenza Type B (PCR) Not Detected (Not Detectd) RSV (PCR) Not Detected (Not Detectd) SARS-CoV-2 (PCR) Not Detected (Not Detectd) 10/21/24 10/21/24 10/21/24 Range/Units 23:22 23:22 23:22 WBC (3.8-10.6) k/uL RBC (4.30-5.90) m/uL Hgb (13.0-17.5) gm/dL Hct (39.0-53.0) % MCV (80.0-100.0) fL MCH (25.0-35.0) pg MCHC (31.0-37.0) g/dL RDW (11.5-15.5) % Plt Count (150-450) k/uL MPV Neutrophils % % Lymphocytes % % Monocytes % % Eosinophils % % Basophils % % Neutrophils # (1.3-7.7) k/uL Lymphocytes # (1.0-4.8) k/uL Monocytes # (0-1.0) k/uL Eosinophils # (0-0.7) k/uL Basophils # (0-0.2) k/uL PT 10.4 (10.0-12.5) sec INR 0.9 (<1.2) APTT 23.9 (22.0-30.0) sec Sodium 141 (137-145) mmol/L Potassium 4.5 (3.5-5.1) mmol/L Chloride 102 (98-107) mmol/L Carbon Dioxide 30 (22-30) mmol/L Anion Gap 9 mmol/L BUN 5 L (9-20) mg/dL Creatinine 0.80 (0.66-1.25) mg/dL Est GFR (CKD-EPI)AfAm >90 (>60 ml/min/1.73 sqM) Est GFR (CKD-EPI)NonAf >90 (>60 ml/min/1.73 sqM) Glucose 92 (74-99) mg/dL Calcium 9.4 (8.4-10.2) mg/dL Magnesium 2.2 (1.6-2.3) mg/dL Total Bilirubin 0.5 (0.2-1.3) mg/dL AST 57 (17-59) U/L ALT 71 H (4-49) U/L Alkaline Phosphatase 76 (38-126) U/L Troponin I <0.012 (0.000-0.034) ng/mL Total Protein 7.4 (6.3-8.2) g/dL Albumin 4.5 (3.5-5.0) g/dL Lipase 73 (23-300) U/L Urine Opiates Screen (NotDetected) Ur Oxycodone Screen (NotDetected) Urine Methadone Screen (NotDetected) Ur Barbiturates Screen (NotDetected) U Tricyclic Antidepress (NotDetected) Ur Phencyclidine Scrn (NotDetected) Ur Amphetamines Screen (NotDetected) U Methamphetamines Scrn (NotDetected) U Benzodiazepines Scrn (NotDetected) Urine Cocaine Screen (NotDetected) U Marijuana (THC) Screen (NotDetected) Serum Alcohol 54 mg/dL Influenza Type A (PCR) (Not Detectd) Influenza Type B (PCR) (Not Detectd) RSV (PCR) (Not Detectd) SARS-CoV-2 (PCR) (Not Detectd) Disposition Referrals: Nonstaff,Physician [Primary Care Provider] - 1-2 days
[2024-10-21] MEDS: MORPHINE SULFATE 4 MG/ML SYRINGE IV STA (23:29)
[2024-10-21] MEDS: NITROGLYCERIN SL TABS 0.4 MG TAB SUBLINGUAL STA (23:29)
[2024-10-21] MEDS: ONDANSETRON 4 MG/2 ML VIAL IVP STA (23:31)
[2024-10-21 23:33] LABS: Basophils % (A) 0 %; Eosinophils # (A) 0.2 k/uL (0-0.7); Eosinophils % (A) 4 %; HCT 43.7 % (39.0-53.0); HGB 14.5 gm/dL (13.0-17.5); Lymphocytes # (A) 1.3 k/uL (1.0-4.8); Lymphocytes % (A) 24 %; MCH 28.3 pg (25.0-35.0); MCHC 33.3 g/dL (31.0-37.0); MCV 85.1 fL (80.0-100.0); Mean Platelet Volume 7.1; Monocytes # (A) 0.4 k/uL (0-1.0); Monocytes % (A) 8 %; Neutrophils # (A) 3.3 k/uL (1.3-7.7); Neutrophils % (A) 60 %; Platelet Count 208 k/uL (150-450); RBC 5.13 m/uL (4.30-5.90); RDW 13.9 % (11.5-15.5); WBC 5.5 k/uL (3.8-10.6)
[2024-10-21 23:44] LABS: ALT 71 U/L (4-49); AST 57 U/L (17-59); African American GFR (CKD) >90 (>60 ml/min/1.73 sqM); Albumin 4.5 g/dL (3.5-5.0); Alcohol 54 mg/dL; Alkaline Phosphatase 76 U/L (38-126); Anion Gap 9 mmol/L; Blood Urea Nitrogen 5 mg/dL (9-20); Calcium 9.4 mg/dL (8.4-10.2); Carbon Dioxide 30 mmol/L (22-30); Chloride 102 mmol/L (98-107); Glucose 92 mg/dL (74-99); Lipase 73 U/L (23-300); Magnesium 2.2 mg/dL (1.6-2.3); Non-African American GFR(CKD) >90 (>60 ml/min/1.73 sqM); Potassium 4.5 mmol/L (3.5-5.1); Sodium 141 mmol/L (137-145); Total Bilirubin 0.5 mg/dL (0.2-1.3); Total Protein 7.4 g/dL (6.3-8.2)
[2024-10-21 23:51] LABS: INR 0.9 (<1.2); Partial Thromboplastin Time 23.9 sec (22.0-30.0); Prothrombin Time 10.4 sec (10.0-12.5)
--- NOTE | 2024-10-22 00:45 | XR ---
EXAM: XR Chest, 2 Views CLINICAL HISTORY: Chest Pain TECHNIQUE: Frontal and lateral views of the chest. COMPARISON: No relevant prior studies available. FINDINGS: Lungs: Unremarkable. No consolidation. Pleural space: Unremarkable. Mediastinum: Unremarkable. Normal mediastinal contour. Bones/joints: No acute findings. IMPRESSION: No acute findings.
[2024-10-22] MEDS: MAGNESIUM SULFATE-D5W PMX 1 GM in DEXTROSE/WATER 1 100ML.BAG IVPB ONE (01:00)
[2024-10-22] MEDS ORDERED: haloperidoL 5 MG TAB PO PRN (03:55)
[2024-10-22] MEDS ORDERED: ACETAMINOPHEN TAB 325 MG TAB PO PRN (03:55)
[2024-10-22] MEDS ORDERED: MAG HYDROX/AL HYDROX/SIMETH 355 ML BOTTLE PO PRN (03:55)
[2024-10-22] MEDS ORDERED: MAGNESIUM HYDROXIDE 2,400 MG/30 ML CUP PO PRN (03:55)
[2024-10-22 08:04] LABS: Appearance,Urine Clear (Clear); Bilirubin,Urine Negative (Negative); Blood,Urine Negative (Negative); Color,Urine Yellow; Glucose,Urine (UA) Negative (Negative); Ketones,Urine Negative (Negative); Leukocyte Esterase,Urine Negative (Negative); Nitrite,Urine Negative (Negative); PH, Urine 6.5 (5.0-8.0); Protein,Urine Negative (Negative); Specific Gravity,Urine 1.022 (1.001-1.035)
[2024-10-22] MEDS: NICOTINE 14MG/24HR PATCH TRANSDERM SCH (08:25)
[2024-10-22] MEDS ORDERED: traZODone HCL 50 MG TAB PO PRN (12:13)
--- NOTE | 2024-10-22 12:24 | P.HP ---
Psychiatric H&P - . H&P Date: 10/22/24 History & Physical: Allergies Allergy/AdvReac Type Severity Reaction Status Date / Time ibuprofen from Motrin Allergy Rash/Hives Verified 10/21/24 20: Vital Signs Temp 97.8 F 10/21/24 20:19 Pulse 82 10/21/24 20:19 Resp 18 10/21/24 20:19 BP 115/60 10/21/24 20:19 Pulse Ox 97 10/21/24 20:19 FiO2 Intake & Output 10/21/24 10/22/24 10/22/24 18:59 06:59 18:59 Weight 86.183 kg Laboratory Last Values WBC 5.5 k/uL (3.8-10.6) 10/21/24 23:22 RBC 5.13 m/uL (4.30-5.90) 10/21/24 23:22 Hgb 14.5 gm/dL (13.0-17.5) 10/21/24 23:22 Hct 43.7 % (39.0-53.0) 10/21/24 23:22 MCV 85.1 fL (80.0-100.0) 10/21/24 23:22 MCH 28.3 pg (25.0-35.0) 10/21/24 23:22 MCHC 33.3 g/dL (31.0-37.0) 10/21/24 23:22 RDW 13.9 % (11.5-15.5) 10/21/24 23:22 Plt Count 208 k/uL (150-450) 10/21/24 23:22 MPV 7.1 10/21/24 23:22 Neutrophils % 60 % 10/21/24 23:22 Lymphocytes % 24 % 10/21/24 23:22 Monocytes % 8 % 10/21/24 23:22 Eosinophils % 4 % 10/21/24 23:22 Basophils % 0 % 10/21/24 23:22 Neutrophils # 3.3 k/uL (1.3-7.7) 10/21/24 23:22 Lymphocytes # 1.3 k/uL (1.0-4.8) 10/21/24 23:22 Monocytes # 0.4 k/uL (0-1.0) 10/21/24 23:22 Eosinophils # 0.2 k/uL (0-0.7) 10/21/24 23:22 Basophils # 0.0 k/uL (0-0.2) 10/21/24 23:22 PT 10.4 sec (10.0-12.5) 10/21/24 23:22 INR 0.9 (<1.2) 10/21/24 23:22 APTT 23.9 sec (22.0-30.0) 10/21/24 23:22 Sodium 141 mmol/L (137-145) 10/21/24 23:22 Potassium 4.5 mmol/L (3.5-5.1) 10/21/24 23:22 Chloride 102 mmol/L (98-107) 10/21/24 23:22 Carbon Dioxide 30 mmol/L (22-30) 10/21/24 23:22 Anion Gap 9 mmol/L 10/21/24 23:22 BUN 5 mg/dL (9-20) L 10/21/24 23:22 Creatinine 0.80 mg/dL (0.66-1.25) 10/21/24 23:22 Est GFR (CKD-EPI)AfAm >90 (>60 ml/min/1.73 sqM) 10/21/24 23:22 Est GFR (CKD-EPI)NonAf >90 (>60 ml/min/1.73 sqM) 10/21/24 23:22 Glucose 92 mg/dL (74-99) 10/21/24 23:22 Calcium 9.4 mg/dL (8.4-10.2) 10/21/24 23:22 Magnesium 2.2 mg/dL (1.6-2.3) 10/21/24 23:22 Total Bilirubin 0.5 mg/dL (0.2-1.3) 10/21/24 23:22 AST 57 U/L (17-59) 10/21/24 23:22 ALT 71 U/L (4-49) H 10/21/24 23:22 Alkaline Phosphatase 76 U/L (38-126) 10/21/24 23:22 Troponin I <0.012 ng/mL (0.000-0.034) 10/21/24 23:22 Total Protein 7.4 g/dL (6.3-8.2) 10/21/24 23:22 Albumin 4.5 g/dL (3.5-5.0) 10/21/24 23:22 Lipase 73 U/L (23-300) 10/21/24 23:22 Urine Color Yellow 10/21/24 21:39 Urine Appearance Clear (Clear) 10/21/24 21:39 Urine pH 6.5 (5.0-8.0) 10/21/24 21:39 Ur Specific [place] 1.022 (1.001-1.035) 10/21/24 21:39 Urine Protein Negative (Negative) 10/21/24 21:39 Urine Glucose (UA) Negative (Negative) 10/21/24 21:39 Urine Ketones Negative (Negative) 10/21/24 21: Urine Blood Negative (Negative) 10/21/24 21: Urine Nitrite Negative (Negative) 10/21/24 21:39 Urine Bilirubin Negative (Negative) 10/21/24 21:39 Urine Urobilinogen 6.0 mg/dL (<2.0) 10/21/24 21:39 Ur Leukocyte Esterase Negative (Negative) 10/21/24 21:39 Urine Opiates Screen Detected (NotDetected) H 10/21/24 21:39 Ur Oxycodone Screen Not Detected (NotDetected) 10/21/24 21:39 Urine Methadone Screen Not Detected (NotDetected) 10/21/24 21:39 Ur Barbiturates Screen Not Detected (NotDetected) 10/21/24 21:39 U Tricyclic Antidepress Not Detected (NotDetected) 10/21/24 21:39 Ur Phencyclidine Scrn Not Detected (NotDetected) 10/21/24 21:39 Ur Amphetamines Screen Not Detected (NotDetected) 10/21/24 21:39 U Methamphetamines Scrn Not Detected (NotDetected) 10/21/24 21:39 U Benzodiazepines Scrn Detected (NotDetected) H 10/21/24 21:39 Urine Cocaine Screen Not Detected (NotDetected) 10/21/24 21:39 U Marijuana (THC) Screen Detected (NotDetected) H 10/21/24 21:39 Serum Alcohol 54 mg/dL 10/21/24 23:22 Influenza Type A (PCR) Not Detected (Not Detectd) 10/21/24 21:39 Influenza Type B (PCR) Not Detected (Not Detectd) 10/21/24 21:39 RSV (PCR) Not Detected (Not Detectd) 10/21/24 21:39 SARS-CoV-2 (PCR) Not Detected (Not Detectd) 10/21/24 21:39 10/22/24 12:17 IDENTIFYING DATA: Patient is a 44-year-old male, homeless, he is single, he has 4 kids, he collect Social Security disability HPI: Patient presented to the hospital and was evaluated by EPS nurse and as per note "Food Service Lead attempted to speak with pt at 0105. Patient stated "Can we do this in the morning? I've had a long day", medical underwriter educated the pt the assessment needed to be done now Patient then stated "I'm refusing to answer any questions until the morning". ORTHOPEDIC CODER notified and bedflow notified. Staff in ER attempted to see if patient would agree to speak with medical underwriter, pt declined stating "I will in the morning". Food Service Lead was called back at 0300 by ORTHOPEDIC CODER stating pt is willing to talk. Food Service Lead attempted to asked pt questions again at 0307. Patient told medical underwriter "I'm not answering sh*t from you until you given me pain meds. This is how bribery wor ks". Patient was brought it by police, who then filled out petition. Petition states "I want to hang myself and shoot myself because of life". Patient continued to refuse to answer questions from medical underwriter and yelled obscenities". Patient was seen today resting in bed agreeable to speak to medical underwriter. He was mildly irritable however was fairly cooperative. Claims that he is homeless, claims that he is overwhelmed with multiple stressors. Claims that he was feeling a bit depressed however relates that this is chronic. Denying any anxiety at this time. Claims that he lied about being suicidal and states that he is not suicidal at this time. Claims that he is trying to go to [facility] to stay with his father. States that his [id number] kicked him out of the house. States that he is also in a custody aldana for one of his children. States that there has been multiple deaths in his family. States that he is also dealing with financial issues and also ischial isolation. Claims that his sleep and appetite are on and off. States that he has been drinking alcohol, claims that his last drink was about 3 to 4 days ago. Did not relay how much she is drinking at this time, states that he does not have significant withdrawals in the past however does state that he has minor tremors in his hands at this time. Urine drug screen is positive for opiates benzodiazepines and THC. Blood alcohol level was 54 on admission. Patient denies any suicidal or homicidal ideations intent or plan. At this time patient denies any auditory or visual hallucinations. Patient denies any flight of ideas racing thoughts and increased in goal directed behavior. Patient admits to using alcohol as noted above. Also claims that he smokes marijuana daily, also claims that he vapes nicotine PAST PSYCHIATRIC HISTORY: Patient has a history of depression and substance abuse. Patient denies being on any psychiatric medications. He claims that he has been tried on "all the psych medications" and states that a lot of them give him side effects. He was fairly hesitant about taking any medications at this time he was last psychiatrically admitted in December 2023. Patient denies any psychiatric outpatient follow-up. Claims that he has had multiple suicide attempts in the past different overdoses and also attempted to hang himself 3 times. Past Medical History: Myocardial Infarction ([place]), Skin Disorder Additional Past Medical History / Comment(s): "bad prostate" , eczema Last Myocardial Infarction Date:: unknown History of Any Multi-Drug Resistant Organisms: None Reported Past Surgical History: Heart Catheterization With Stent Additional Past Surgical History / Comment(s): stent x1 Past Anesthesia/Blood Transfusion Reactions: No Reported Reaction Past Psychological History: ADD/ADHD, Depression, PTSD Smoking Status: Current every day smoker Past Alcohol Use History: Daily, Heavy Past Drug Use History: Cocaine, Heroin, IV Drug Use, Marijuana ALLERGIES: as per EMR CHEMICAL DEPENDENCY HISTORY: as per HPI FAMILY PSYCHIATRIC/SUBSTANCE USE HISTORY: Claims that his uncle had schizophrenia SOCIAL HISTORY: Patient was born and raised in [place] [place]. Claims that he completed high school. 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 He is homeless he is single he has 4 kids. Claims that he has been to senior care several times in the past, does claim that the last time he was in senior care was in 2022 for DUI and also probation violation. MENTAL STATUS EXAM: General Appearance: Patient appears to be tall, thin, several tattoos including over his face, stated age is alert, mildly irritable yet attempts to cooperate. Patient appears to have fair hygiene and grooming. Behavior: Patient is seated without any agitated behavior. Mildly irritable, attempts to cooperate Speech: Patient's speech is fluent and nonpressured. Mood/Affect: Patient reports their mood is depressed "a bit", affect is congruent Suicidality/Homicidality: Patient denies having any homicidal ideation intent or plan. Denies any suicidal ideations intent or plan Perceptions: Patient denies any visual hallucinations and denies any auditory hallucinations Though content/process: There is no evidence of any delusional thought content and thought process is linear and goal-directed. Future oriented. Memory and concentration: AOX3, grossly intact for the purposes of this session. Can spell "WORLD" backwards Judgment and insight: Poor STRENGTHS/WEAKNESSES: strength is that patient is resilient. Weakness is that patient has poor judgment and is impulsive and is also homeless INTELLECT: Average IMPRESSIONS: Adjustment disorder with disturbances in emotional conduct Cluster B personality disorder Alcohol use disorder Cannabis use disorder Nicotine dependence Homelessness PLAN: -Patient is admitted under voluntary status to [facility] for stabilization of psychi atric symptoms and safety. Patient has signed adult voluntary form and and is placed in patient's chart. -Medications : Lexapro 5 mg nightly for mood/anxiety, trazodone 50 mg nightly as needed for insomnia. -Ativan and Haldol PRN for agitation/aggression -Started thiamine, MVM for etoh use -CIWA protocol with Ativan PRN for ETOH withdrawal. -Patient was counselled on substance abuse and desired to cut back on use however patient is not willing to go to rehab. -Patient was informed of the risks, benefits and side effects of the medication. Patient was hesitant about taking medications, refused to sign medication consent. -Internal Medicine consult to perform medical evaluation and physical. -NRT -nicotine patch -SW on board for discharge planning. Encourage patient to participate in groups to work on coping skills. Likely plan for discharge tomorrow as patient is focused on discharge going back to his father's house in [facility]. home economics extension worker to help arrange a ride or bus ticket. 10/22/24 12:18
[2024-10-22] MEDS: LORazepam 1 MG TAB PO PRN (15:15)
[2024-10-22] MEDS: ESCITALOPRAM 5 MG TAB PO SCH (21:37)
[2024-10-23] MEDS: MULTIVITAMINS, THERA 1 EACH TAB PO SCH (08:43)
[2024-10-23] MEDS: FOLIC ACID 1 MG TAB PO SCH (08:43)
[2024-10-23] MEDS: THIAMINE 100 MG TAB PO SCH (08:43)
--- NOTE | 2024-10-23 08:57 | P.DS ---
Providers Date of admission: 10/22/24 03:49 Expected date of discharge: 10/23/24 Attending physician: Adis Washburn MD Consults: 10/22/24 03:55 Consult Physician Routine Consulting Provider: Marlen Hernandez Consult Reason/Comments: H &P Do you want consulting provider notified?: Already Contacted Primary care physician: Stated None - Discharge Diagnosis(es) (1) Adjustment disorder with emotional disturbance Current Visit: Yes Status: Acute Priority: High (2) Cluster B personality disorder Current Visit: Yes Status: Acute Priority: High (3) Alcohol use disorder Current Visit: Yes Status: Acute Priority: High (4) Cannabis use disorder Current Visit: Yes Status: Acute Priority: Medium (5) Nicotine dependence Current Visit: Yes Status: Acute Priority: Low (6) Homelessness Current Visit: Yes Status: Acute Priority: Medium Hospital Course: Admission HPI: Admission note was completed by script writer "Patient is a 44-year-old male, homeless, he is single, he has 4 kids, he collect Social Security disability. Patient presented to the hospital and was evaluated by EPS nurse and as per note "Risk Manager attempted to speak with pt at 0105. Patient stated "Can we do this in the morning? I've had a long day", script writer educated the pt the assessment needed to be done now Patient then stated "I'm refusing to answer any questions until the morning". ARMORED CABLE MACHINE OPERATOR notified and bedflow notified. Staff in ER attempted to see if patient would agree to speak with script writer, pt declined stating "I will in the morning". Risk Manager was called back at 0300 by ARMORED CABLE MACHINE OPERATOR stating pt is willing to talk. Risk Manager attempted to asked pt questions again at 0307. Patient told script writer "I'm not answering sh*t from you until you given me pain meds. This is how bribery works". Patient was brought it by police, who then filled out petition. Petition states "I want to hang myself and shoot myself because of life". Patient continued to refuse to answer questions from script writer and yelled obscenities". Patient was seen today resting in bed agreeable to speak to script writer. He was mildly irritable however was fairly cooperative. Claims that he is homeless, claims that he is overwhelmed with multiple stressors. Claims that he was feeling a bit depressed however relates that this is chronic. Denying any anxiety at this time. Claims that he lied about being suicidal and states that he is not suicidal at this time. Claims that he is trying to go to [facility] to stay with his father. States that his [id number] kicked him out of the house. States that he is also in a custody aldana for one of his children. States that there has been multiple deaths in his family. States that he is also dealing with financial issues and also ischial isolation. Claims that his sleep and appetite are on and off. States that he has been drinking alcohol, claims that his last drink was about 3 to 4 days ago. Did not relay how much she is drinking at this time, states that he does not have significant withdrawals in the past however does state that he has minor tremors in his hands at this time. Urine drug screen is positive for opiates benzodiazepines and THC. Blood alcohol level was 54 on admission. Patient denies any suicidal or homicidal ideations intent or plan. At this time patient denies any auditory or visual hallucinations. Patient denies any flight of ideas racing thoughts and increased in goal directed behavior. Patient admits to using alcohol as noted above. Also claims that he smokes marijuana daily, also claims that he vapes nicotine." Hospital course: Upon admission to the unit patient was directable and agreeable to commence treatment and signed adult voluntary form. Patient got along well with other patients on the unit and followed unit protocol. Patient was compliant with the medications and denied any side effects throughout hospital course. Patient was started on Lexapro scheduled and trazodone nightly as needed however patient refused both of these medications. Patient was also placed on CIMS protocol with as needed Ativan only received 1 dose of p.o. Ativan for withdrawals. Patient spoke of his stressors and engaged in therapy both group and individual. Patient was also seen by medical team for history and physical exam. Throughout the course of the hospitalization patient gradually improved with regards to mood, anxiety, sleep and returned back to their baseline level of functioning. On the day of discharge patient denied any suicidal or homicidal ideations intent or plan denied any auditory or visual hallucinations. Patient endorsed wanting to live for their health, sobriety and family. The patient denied any access to guns or weapons. Patient denied any paranoia and did not endorse any delusions. Patient does have a significant history of substance abuse and was counseled on abstaining from all substances including alcohol and marijuana. Patient ended up agreeing to inpatient subtance rehab and will be going to [facility] today. Patient was also counseled on the medications and need for regular compliance and was encouraged to follow-up with their outpatient appointment for mental health and also for primary care. Mental status exam: General Appearance: Patient appears to be thin, several tattoos, stated age is alert, pleasant, and cooperative. Patient is in no acute distress and has improved hygiene and grooming Behavior: Patient is calmly seated without any agitated behavior. Speech: Patient's speech is fluent and nonpressured. Mood/Affect: Patient reports their mood is "good", affect is congruent and euthymic. Suicidality/Homicidality: Patient denies having any suicidal or homicidal ideation intent or plan. Perceptions: Patient denies any auditory or visual hallucinations. Though content/process: There is no evidence of any delusional thought content and thought process is linear and goal-directed. Memory and concentration: AOX3, grossly intact for the purposes of this session. Can spell "WORLD" backwards correctly. Judgment and insight: Chronically poor, however has improved with guarded prognosis Impression: Adjustment disorder with emotional disturbance Cluster B personality disorder Alcohol use disorder Cannabis use disorder Homelessness Nicotine dependence Plan: -Continue with discharge today as patient has improved and stabilized psychiatrically and is not currently an imminent threat to themself and/or others. Patient will remain at chronically elevated risk for harm to self and/or others due to their impulsivity and substance abuse. -Continue medications: Patient claims that he does not want to be on any psychiatric medications at this time, refused them on the unit. He will continue detox while at [facility] -Patient was counseled on the need for medication compliance and appropriate follow-up at mental health and also primary care for medical issues. Patient verbalized understanding and agreed. -Social work to help coordinate patients discharge today as he will be going directly to [facility] today. also to ensure safe home environment that guns/weapons are either removed from the home or locked away. Social work also to arrange for patients follow up appointments with [facility] for psychiatric care along with follow up with primary care provider. -Patient counseled on abstaining from recreational drugs and marijuana and alcohol. Was informed/educated on the adverse effects on their physical and mental health. Patient verbally agreed and understood. -Patient was instructed to return to the hospital or seek immediate medical care if their psychiatric or medical symptoms do worsen or reoccur. Allergies Allergy/AdvReac Type Severity Reaction Status Date / Time ibuprofen [From Motrin] Allergy Rash/Hives Verified 10/21/24: Laboratory Results WBC 5.5 k/uL (3.8-10.6) 10/21/24 23:22 RBC 5.13 m/uL (4.30-5.90) 10/21/24 23:22 Hgb 14.5 gm/dL (13.0-17.5) 10/21/24 23: Hct 43.7 % (39.0-53.0) 10/21/24 23: MCV 85.1 fL (80.0-100.0) 10/21/24 23:22 MCH 28.3 pg (25.0-35.0) 10/21/24 23: MCHC 33.3 g/dL (31.0-37.0) 10/21/24 23:22 RDW 13.9 % (11.5-15.5) 10/21/24 23: Plt Count 208 k/uL (150-450) 10/21/24 23:22 MPV 7.1 10/21/24 23:22 Neutrophils % 60 % 10/21/24 23:22 Lymphocytes % 24 % 10/21/24 23:22 Monocytes % 8 % 10/21/24 23: Eosinophils % 4 % 10/21/24 23: Basophils % 0 % 10/21/24 23:22 Neutrophils # 3.3 k/uL (1.3-7.7) 10/21/24 23:22 Lymphocytes # 1.3 k/uL (1.0-4.8) 10/21/24 23: Monocytes # 0.4 k/uL (0-1.0) 10/21/24 23: Eosinophils # 0.2 k/uL (0-0.7) 10/21/24 23: Basophils # 0.0 k/uL (0-0.2) 10/21/24 23: PT 10.4 sec (10.0-12.5) 10/21/24 23:22 INR 0.9 (<1.2) 10/21/24 23:22 APTT 23.9 sec (22.0-30.0) 10/21/24 23:22 Sodium 141 mmol/L (137-145) 10/21/24 23:22 Potassium 4.5 mmol/L (3.5-5.1) 10/21/24 23:22 Chloride 102 mmol/L (98-107) 10/21/24 23:22 Carbon Dioxide 30 mmol/L (22-30) 10/21/24 23:22 Anion Gap 9 mmol/L 10/21/24 23:22 BUN 5 mg/dL (9-20) L 10/21/24 23:22 Creatinine 0.80 mg/dL (0.66-1.25) 10/21/24 23:22 Est GFR (CKD-EPI)AfAm >90 (>60 ml/min/1.73 sqM) 10/21/24 23:22 Est GFR (CKD-EPI)NonAf >90 (>60 ml/min/1.73 sqM) 10/21/24 23:22 Glucose 92 mg/dL (74-99) 10/21/24 23:22 Calcium 9.4 mg/dL (8.4-10.2) 10/21/24 23:22 Magnesium 2.2 mg/dL (1.6-2.3) 10/21/24 23:22 Total Bilirubin 0.5 mg/dL (0.2-1.3) 10/21/24 23:22 AST 57 U/L (17-59) 10/21/24 23:22 ALT 71 U/L (4-49) H 10/21/24 23:22 Alkaline Phosphatase 76 U/L (38-126) 10/21/24 23:22 Troponin I <0.012 ng/mL (0.000-0.034) 10/21/24 23:22 Total Protein 7.4 g/dL (6.3-8.2) 10/21/24 23:22 Albumin 4.5 g/dL (3.5-5.0) 10/21/24 23:22 Lipase 73 U/L (23-300) 10/21/24 23:22 Urine Color Yellow 10/21/24 21:39 Urine Appearance Clear (Clear) 10/21/24 21:39 Urine pH 6.5 (5.0-8.0) 10/21/24 21:39 Ur Specific [place] 1.022 (1.001-1.035) 10/21/24 21:39 Urine Protein Negative (Negative) 10/21/24 21:39 Urine Glucose (UA) Negative (Negative) 10/21/24 21:39 Urine Ketones Negative (Negative) 10/21/24 21:39 Urine Blood Negative (Negative) 10/21/24 21:39 Urine Nitrite Negative (Negative) 10/21/24 21:39 Urine Bilirubin Negative (Negative) 10/21/24 21:39 Urine Urobilinogen 6.0 mg/dL (<2.0) 10/21/24 21:39 Ur Leukocyte Esterase Negative (Negative) 10/21/24 21:39 Urine Opiates Screen Detected (NotDetected) H 10/21/24 21:39 Ur Oxycodone Screen Not Detected (NotDetected) 10/21/24 21:39 Urine Methadone Screen Not Detected (NotDetected) 10/21/24 21:39 Ur Barbiturates Screen Not Detected (NotDetected) 10/21/24 21:39 U Tricyclic Antidepress Not Detected (NotDetected) 10/21/24 21:39 Ur Phencyclidine Scrn Not Detected (NotDetected) 10/21/24 21:39 Ur Amphetamines Screen Not Detected (NotDetected) 10/21/24 21:39 U Methamphetamines Scrn Not Detected (NotDetected) 10/21/24 21:39 U Benzodiazepines Scrn Detected (NotDetected) H 10/21/24 21:39 Urine Cocaine Screen Not Detected (NotDetected) 10/21/24 21:39 U Marijuana (THC) Screen Detected (NotDetected) H 10/21/24 21:39 Serum Alcohol 54 mg/dL 10/21/24 23:22 Influenza Type A (PCR) Not Detected (Not Detectd) 10/21/24 21:39 Influenza Type B (PCR) Not Detected (Not Detectd) 10/21/24 21:39 RSV (PCR) Not Detected (Not Detectd) 10/21/24 21:39 SARS-CoV-2 (PCR) Not Detected (Not Detectd) 10/21/24 21:39 Vital Signs Temp 97.8 F 10/21/24 20:19 Pulse 82 10/21/24 20:19 Resp 18 10/21/24 20:19 BP 115/60 10/21/24 20:19 Pulse Ox 97 10/21/24 20:19 FiO2 Patient Condition at Discharge: Stable Plan - Discharge Summary New Discharge Prescriptions: No Action DULoxetine HCL [Cymbalta] 30 mg PO DAILY oxyCODONE-APAP 10-325MG [Percocet 10-325 mg] 1 tab PO Q8H PRN PRN Reason: Pain Discharge Medication List DULoxetine HCL [Cymbalta] 30 mg PO DAILY 12/04/23 [History] oxyCODONE-APAP 10-325MG [Percocet 10-325 mg] 1 tab PO Q8H PRN 12/04/23 [History] Follow up Appointment(s)/Referral(s): Nonstaff,Physician [REFERRING] - 1-2 days
== END 2024-10-23 10:51 | disposition other institution (70) | DRG 882 ==
LOC: EC 20:00 → 3MHU 10-22 03:49
PROVIDERS: ADMIT Psychiatry & Neurology Psychiatry; ATTEND Psychiatry & Neurology Psychiatry
PROC: HZ2ZZZZ Detoxification Services for Substance Abuse Treatment (ICD-10-PCS; principal; 2024-10-22)
DX: F43.29 Adjustment disorder with other symptoms (principal); F25.9 Schizoaffective disorder, unspecified; F32.A Depression, unspecified; F10.10 Alcohol abuse, uncomplicated; F12.10 Cannabis abuse, uncomplicated; Z59.00 Homelessness unspecified; R45.851 Suicidal ideations; Z11.52 Encounter for screening for COVID-19; F60.89 Other specific personality disorders; F90.9 Attention-deficit hyperactivity disorder, unspecified type; I25.2 Old myocardial infarction; Y90.2 Blood alcohol level of 40-59 mg/100 ml; Z81.8 Family history of other mental and behavioral disorders; F43.10 Post-traumatic stress disorder, unspecified; F41.9 Anxiety disorder, unspecified; F17.210 Nicotine dependence, cigarettes, uncomplicated; Z71.41 Alcohol abuse counseling and surveillance of alcoholic; Z71.51 Drug abuse counseling and surveillance of drug abuser; Z71.6 Tobacco abuse counseling
CPT/HCPCS: 36415; 71046; 80053; 80306; 80320; 81003; 82075; 83036; 83690; 83735; 84484; 85025; 85610; 85730; 87636; 93005; 96365; 96375; 99285

== ENCOUNTER 2024-11-02 10:34 | Observation (INO) | payer MEDICARE ==
[2024-11-02] MEDS: NITROGLYCERIN OINT 1 INCH/GM PACKET TOPICAL STA (11:01)
--- NOTE | 2024-11-02 11:04 | ED ---
General Adult HPI - General Chief complaint: Chest Pain Stated complaint: chest pain Time Seen by Provider: 11/02/24 10:40 Source: patient, EMS, RN notes reviewed, old records reviewed - History of Present Illness Initial comments: This is a 44-year-old male who presents to the emergency department from [facility]. Patient states he has had multiple heart attacks in the past. Patient states he has never had a stent placed. Patient states he has been in [place] over a week for alcohol abuse. Patient comes in today because he started having chest pain that radiated down his left arm and he said he was a little short of breath. Patient states nitroglycerin that they gave him in the ambulance took most of the pain away. Patient denies any fever chills or cough. Patient denies any abdominal pain patient [place] nausea or vomiting. - Related Data Home Medications Medication Instructions Recorded Confirmed Acetaminophen [Tylenol] 650 mg PO Q4H PRN 11/02/24 11/02/24 Calcium Phos/D3/Magnesium/Zinc 1 tab PO TID PRN 11/02/24 11/02/24 [Rxltfio-Wah-Mvin-Vitamin D3] Chlorpheniramine Maleate 4 mg PO Q4H PRN 11/02/24 11/02/24 [Chlor-Trimeton] Hyoscyamine Sulfate [Levsin] 0.125 mg PO QID PRN 11/02/24 11/02/24 Loperamide HCl [Imodium A-D] 4 mg PO QID PRN MDD 16mg 11/02/24 11/02/24 Multivitamins, Thera [Multivitamin 1 tab PO DAILY 11/02/24 11/02/24 (formulary)] Mylanta Regular Strength 30 ml PO Q4H PRN 11/02/24 11/02/24 guaiFENesin [guaiFENesin Oral 200 mg PO Q4H PRN 11/02/24 11/02/24 Solution] ondansetron HCL [Zofran] 8 mg PO Q6H PRN 11/02/24 11/02/24 Previous Rx's Medication Instructions Recorded Thiamine [Vitamin B-1] 100 mg PO DAILY tab 10/23/24 Allergies Allergy/AdvReac Type Severity Reaction Status Date / Time ibuprofen [From Motrin] Allergy Rash/Hives Verified 11/02/24 11:06 Review of Systems ROS Statement: Those systems with pertinent positive or pertinent negative responses have been documented in the HPI. ROS Other: All systems not noted in ROS Statement are negative. Past Medical History Past Medical History: Myocardial Infarction (MS), Skin Disorder Additional Past Medical History / Comment(s): "bad prostate" , eczema Last Myocardial Infarction Date:: unknown History of Any Multi-Drug Resistant Organisms: None Reported Past Surgical History: Heart Catheterization With Stent Additional Past Surgical History / Comment(s): stent x1 Past Anesthesia/Blood Transfusion Reactions: No Reported Reaction Past Psychological History: ADD/ADHD, Depression, PTSD Smoking Status: Current every day smoker Past Alcohol Use History: Daily, Heavy Past Drug Use History: Cocaine, Heroin, IV Drug Use, Marijuana General Exam - General Exam Comments Initial Comments: GENERAL: Patient is well-developed and well-nourished. Patient is nontoxic and well- hydrated and is in mild distress. ENT: Neck is soft and supple. No significant lymphadenopathy is noted. Oropharynx is clear. Moist mucous membranes. Neck has full range of motion without eliciting any pain. EYES: The sclera were anicteric and conjunctiva were pink and moist. Extraocular movements were intact and pupils were equal round and reactive to light. Eyelids were unremarkable. PULMONARY: Unlabored respirations. Good breath sounds bilaterally. No audible rales rhonchi or wheezing was noted. CARDIOVASCULAR: There is a regular rate and rhythm without any murmurs gallops or rubs. ABDOMEN: Soft and nontender with normal bowel sounds. SKIN: Skin is clear with no lesions or rashes and otherwise unremarkable. NEUROLOGIC: Patient is alert and oriented x3. Cranial nerves II through XII are grossly intact. Motor and sensory are also intact. Normal speech, volume and content. Symmetrical smile. MUSCULOSKELETAL: Normal extremities with adequate strength and full range of motion. No lower extremity swelling or edema. No calf tenderness. LYMPHATICS: No significant lymphadenopathy is noted PSYCHIATRIC: Normal psychiatric evaluation. Course Vital Signs 11/02/24 11/02/24 11/02/24 10:35 10:49 11:27 Temperature 97.8 F Pulse Rate 80 83 73 Respiratory 16 15 14 Rate Blood Pressure 114/90 111/90 115/85 O2 Sat by Pulse 100 99 99 Oximetry 11/02/24 12:14 Temperature Pulse Rate 75 Respiratory 14 Rate Blood Pressure 125/45 O2 Sat by Pulse 98 Oximetry Medical Decision Making - Medical Decision Making EKG shows a normal sinus rhythm at 76 bpm GA was 130 QRS of 79 QT interval 391 QTc is 421. Patient's EKG shows no ST segment elevation or depression Was pt. sent in by a medical professional or institution (GINO Varela, MANAGER SOCIAL MEDIA, urgent care, hospital, or assisted...) When possible be specific @ -No Did you speak to anyone other than the patient for history (EMS, parent, family, police, friend...)? What history was obtained from this source @ -No Did you review nursing and triage notes (agree or disagree)? Why? @ -I reviewed and agree with nursing and triage notes Were old charts reviewed (outside hosp., previous admission, EMS record, old EKG, old radiological studies, urgent care reports/EKG's, assisted records)? Report findings @ -No old charts were reviewed Differential Diagnosis? @ -Differential Chest Pain: Stable Angina, Unstable Angina, STEMI, NSTEMI Aortic Dissection, Pneumothorax, Musculoskeletal, Esophageal Spasm GERD, Cholecystitis, Pancreatitis, Zoster, this is not meant to be an all-inclusive list. EKG interpreted by me (3pts min.). @ -As above X-rays interpreted by me (1pt min.). @ -Chest x-ray shows no acute abnormality CT interpreted by me (1pt min.). @ -None done U/S interpreted by me (1pt. min.). @ -None done What testing was considered but not performed or refused? (CT, X-rays, U/S, labs)? Why? @ -None What meds were considered but not given or refused? Why? @ -None Did you discuss the management of the patient with other professionals (professionals i.e. GINO Varela, MANAGER SOCIAL MEDIA, lab, RT, psych nurse, delinquency prevention social worker, boating safety officer, teacher, electronic warfare officer, director case management)? Give summary @ -No Was smoking cessation discussed for >3mins.? @ -No Was critical care preformed (if so, how long)? @ -No Were there social determinants of health that impacted care today? How? (Homelessness, low income, unemployed, alcoholism, drug addiction, transportation, low edu. Level, literacy, decrease access to med. care, shelter, rehab)? @ -No Was there de-escalation of care discussed even if they declined (Discuss DNR or withdrawal of care, Hospice)? DNR status @ -No What co-morbidities impacted this encounter? (DM, HTN, Smoking, COPD, CAD, Cancer, CVA, ARF, Chemo, Hep., AIDS, mental health diagnosis, sleep apnea, morbid obesity)? @ -None Was patient admitted / discharged? Hospital course, mention meds given and route, prescriptions, significant lab abnormalities, going to OR and other pertinent info. @ -Patient's chest pain was only minimal. I spoke with Dr. Franklin she agreed to admit the patient to rule him out for cardiac issues and I consulted cardiology Undiagnosed new problem with uncertain prognosis? @ -No Drug Therapy requiring intensive monitoring for toxicity (Heparin, Nitro, Insulin, Cardizem)? @ -No Were any procedures done? @ -No Diagnosis/symptom? @ -Chest pain Acute, or Chronic, or Acute on Chronic? @ -acute Uncomplicated (without systemic symptoms) or Complicated (systemic symptoms)? @ -Complicated Side effects of treatment? @ -No Exacerbation, Progression, or Severe Exacerbation? @ -No Poses a threat to life or bodily function? How? (Chest pain, USA, MS, pneumonia, PE, COPD, DKA, ARF, appy, cholecystitis, CVA, Diverticulitis, Homicidal, Suicidal, threat to staff... and all critical care pts) @ -Yes this could lead to an MS and endorgan dysfunction - Lab Data Result diagrams: 11/02/24 10:56 11/02/24 10:56 Lab Results 11/02/24 11/02/24 11/02/24 Range/Units 10:44 10:56 10:56 WBC 7.2 (3.8-10.6) k/uL RBC 4.64 (4.30-5.90) m/uL Hgb 13.0 (13.0-17.5) gm/dL Hct 39.3 (39.0-53.0) % MCV 84.7 (80.0-100.0) fL MCH 28.0 (25.0-35.0) pg MCHC 33.1 (31.0-37.0) g/dL RDW 14.5 (11.5-15.5) % Plt Count 230 (150-450) k/uL MPV 8.0 Neutrophils % 72 % Lymphocytes % 18 % Monocytes % 5 % Eosinophils % 3 % Basophils % 0 % Neutrophils # 5.2 (1.3-7.7) k/uL Lymphocytes # 1.3 (1.0-4.8) k/uL Monocytes # 0.4 (0-1.0) k/uL Eosinophils # 0.2 (0-0.7) k/uL Basophils # 0.0 (0-0.2) k/uL PT 10.1 (10.0-12.5) sec INR 0.9 (<1.2) APTT 24.2 (22.0-30.0) sec Sodium (137-145) mmol/L Potassium (3.5-5.1) mmol/L Chloride (98-107) mmol/L Carbon Dioxide (22-30) mmol/L Anion Gap mmol/L BUN (9-20) mg/dL Creatinine (0.66-1.25) mg/dL Est GFR (CKD-EPI)AfAm (>60 ml/min/1.73 sqM) Est GFR (CKD-EPI)NonAf (>60 ml/min/1.73 sqM) Glucose (74-99) mg/dL Calcium (8.4-10.2) mg/dL Magnesium (1.6-2.3) mg/dL Total Bilirubin (0.2-1.3) mg/dL AST (17-59) U/L ALT (4-49) U/L Alkaline Phosphatase (38-126) U/L Troponin I (0.000-0.034) ng/mL Total Protein (6.3-8.2) g/dL Albumin (3.5-5.0) g/dL Influenza Type A (PCR) Not Detected (Not Detectd) Influenza Type B (PCR) Not Detected (Not Detectd) RSV (PCR) Not Detected (Not Detectd) SARS-CoV-2 (PCR) Not Detected (Not Detectd) 11/02/24 11/02/24 Range/Units 10:56 10:56 WBC (3.8-10.6) k/uL RBC (4.30-5.90) m/uL Hgb (13.0-17.5) gm/dL Hct (39.0-53.0) % MCV (80.0-100.0) fL MCH (25.0-35.0) pg MCHC (31.0-37.0) g/dL RDW (11.5-15.5) % Plt Count (150-450) k/uL MPV Neutrophils % % Lymphocytes % % Monocytes % % Eosinophils % % Basophils % % Neutrophils # (1.3-7.7) k/uL Lymphocytes # (1.0-4.8) k/uL Monocytes # (0-1.0) k/uL Eosinophils # (0-0.7) k/uL Basophils # (0-0.2) k/uL PT (10.0-12.5) sec INR (<1.2) APTT (22.0-30.0) sec Sodium 140 (137-145) mmol/L Potassium 4.1 (3.5-5.1) mmol/L Chloride 104 (98-107) mmol/L Carbon Dioxide 23 (22-30) mmol/L Anion Gap 13 mmol/L BUN 19 (9-20) mg/dL Creatinine 0.83 (0.66-1.25) mg/dL Est GFR (CKD-EPI)AfAm >90 (>60 ml/min/1.73 sqM) Est GFR (CKD-EPI)NonAf >90 (>60 ml/min/1.73 sqM) Glucose 95 (74-99) mg/dL Calcium 10.2 (8.4-10.2) mg/dL Magnesium 2.0 (1.6-2.3) mg/dL Total Bilirubin 0.6 (0.2-1.3) mg/dL AST 29 (17-59) U/L ALT 24 (4-49) U/L Alkaline Phosphatase 62 (38-126) U/L Troponin I <0.012 (0.000-0.034) ng/mL Total Protein 7.0 (6.3-8.2) g/dL Albumin 4.4 (3.5-5.0) g/dL Influenza Type A (PCR) (Not Detectd) Influenza Type B (PCR) (Not Detectd) RSV (PCR) (Not Detectd) SARS-CoV-2 (PCR) (Not Detectd) Disposition Clinical Impression: Chest pain Disposition: ADMITTED IP TO THIS HOSP Referrals: None,Stated [Primary Care Provider] - 1-2 days Time of Disposition: 12:38
[2024-11-02 11:05] LABS: Basophils % (A) 0 %; Eosinophils # (A) 0.2 k/uL (0-0.7); Eosinophils % (A) 3 %; HCT 39.3 % (39.0-53.0); Lymphocytes # (A) 1.3 k/uL (1.0-4.8); Lymphocytes % (A) 18 %; MCHC 33.1 g/dL (31.0-37.0); MCV 84.7 fL (80.0-100.0); Monocytes # (A) 0.4 k/uL (0-1.0); Monocytes % (A) 5 %; Neutrophils # (A) 5.2 k/uL (1.3-7.7); Neutrophils % (A) 72 %; Platelet Count 230 k/uL (150-450); RBC 4.64 m/uL (4.30-5.90); RDW 14.5 % (11.5-15.5); WBC 7.2 k/uL (3.8-10.6)
[2024-11-02 11:13] LABS: INR 0.9 (<1.2); Partial Thromboplastin Time 24.2 sec (22.0-30.0); Prothrombin Time 10.1 sec (10.0-12.5)
--- NOTE | 2024-11-02 11:17 | XR ---
EXAMINATION TYPE: XR chest 2V DATE OF EXAM: 11/02/2024 11:10 AM COMPARISON: Chest radiographs from 10/21/2024 TECHNIQUE: XR chest 2V Frontal and lateral views of the chest. CLINICAL INDICATION:Male, 44 years old with history of Chest Pain; FINDINGS: Lungs/Pleura: There is no evidence of pleural effusion, focal consolidation, or pneumothorax. Pulmonary vascularity: Unremarkable. Heart/mediastinum: Cardiomediastinal silhouette is unremarkable. Musculoskeletal: No acute osseous pathology. IMPRESSION: No acute cardiopulmonary disease/process. [facility], , 11/02/2024 11:15 AM
[2024-11-02 11:19] LABS: ALT 24 U/L (4-49); AST 29 U/L (17-59); African American GFR (CKD) >90 (>60 ml/min/1.73 sqM); Albumin 4.4 g/dL (3.5-5.0); Alkaline Phosphatase 62 U/L (38-126); Anion Gap 13 mmol/L; Blood Urea Nitrogen 19 mg/dL (9-20); Calcium 10.2 mg/dL (8.4-10.2); Carbon Dioxide 23 mmol/L (22-30); Chloride 104 mmol/L (98-107); Glucose 95 mg/dL (74-99); Non-African American GFR(CKD) >90 (>60 ml/min/1.73 sqM); Potassium 4.1 mmol/L (3.5-5.1); Sodium 140 mmol/L (137-145); Total Bilirubin 0.6 mg/dL (0.2-1.3)
[2024-11-02 12:07] LABS: Influenza A Not Detected (Not Detectd); Influenza B Not Detected (Not Detectd); RSV Not Detected (Not Detectd)
[2024-11-02] MEDS ORDERED: NITROGLYCERIN SL TABS 0.4 MG TAB SUBLINGUAL PRN (12:38)
[2024-11-02] MEDS ORDERED: ACETAMINOPHEN TAB 325 MG TAB PO PRN (16:57)
[2024-11-02] MEDS ORDERED: guaiFENesin SYRUP 100MG/5ML 200 MG/10 ML CUP PO PRN (16:57)
[2024-11-02] MEDS ORDERED: HYOSCYAMINE SULFATE 0.125 MG TAB PO PRN (16:57)
[2024-11-02] MEDS ORDERED: ONDANSETRON 4 MG TAB PO PRN (16:57)
[2024-11-02] MEDS ORDERED: LOPERAMIDE 2 MG CAP PO PRN (16:57)
[2024-11-02] MEDS ORDERED: diphenhydrAMINE 25 MG CAP PO PRN (16:57)
[2024-11-02] MEDS ORDERED: NON FORMULARY DRUG (Calcium Phos/D3/Magnesium/Zinc [Calcium-Mag-Zinc-Vitamin D3] 1 EACH Ta PO PRN (16:57)
[2024-11-02] MEDS ORDERED: MAG HYDROX/AL HYDROX/SIMETH 30 ML CUP PO PRN (16:57)
[2024-11-02] MEDS: NITROGLYCERIN OINT 1 INCH/GM PACKET TOPICAL SCH (17:20)
[2024-11-02] MEDS: HYDROcodone/APAP 5-325MG 1 EACH TAB PO PRN (17:24)
[2024-11-02] MEDS ORDERED: KETOROLAC 15 MG/ML 1 ML VIAL IVP PRN (20:52)
[2024-11-03 07:30] LABS: Basophils % (A) 0 %; Eosinophils # (A) 0.3 k/uL (0-0.7); Eosinophils % (A) 3 %; HCT 38.6 % (39.0-53.0); HGB 12.6 gm/dL (13.0-17.5); Lymphocytes # (A) 1.6 k/uL (1.0-4.8); Lymphocytes % (A) 19 %; MCH 28.7 pg (25.0-35.0); MCHC 32.7 g/dL (31.0-37.0); MCV 87.8 fL (80.0-100.0); Mean Platelet Volume 7.4; Monocytes # (A) 0.4 k/uL (0-1.0); Monocytes % (A) 5 %; Neutrophils # (A) 5.7 k/uL (1.3-7.7); Neutrophils % (A) 70 %; Platelet Count 213 k/uL (150-450); RBC 4.39 m/uL (4.30-5.90); WBC 8.2 k/uL (3.8-10.6)
[2024-11-03 07:48] LABS: African American GFR (CKD) >90 (>60 ml/min/1.73 sqM); Anion Gap 5 mmol/L; Blood Urea Nitrogen 14 mg/dL (9-20); Calcium 9.1 mg/dL (8.4-10.2); Carbon Dioxide 28 mmol/L (22-30); Chloride 105 mmol/L (98-107); Glucose 73 mg/dL (74-99); Non-African American GFR(CKD) >90 (>60 ml/min/1.73 sqM); Potassium 4.3 mmol/L (3.5-5.1); Sodium 138 mmol/L (137-145)
--- NOTE | 2024-11-03 07:57 | P.CRDCN ---
History of Present Illness Consult date: 11/03/24 Consult reason: chest pain History of present illness: This is Ha Buckley NP, I'm dictating on behalf of Dr. Melendrez's H&P and A&P The patient was interviewed and examined. HPI: Patient is a 44-year-old male with a past medical history reported as ME, PAD prostate, and eczema who presents to the hospital with complaints of chest pain. Patient reports that he had a heart attack approximately 3 weeks to a month ago and was treated at [facility] in [place]. He reports a history of multiple heart attacks in the past without any intervention needed. Patient has been in rehab for alcohol abuse over the last week. He reports the chest pain was radiating down his left arm and he was short of breath. He was given nitroglycerin in the ambulance which he says took most of the pain away. EKG in the emergency department shows diffuse ST elevations. Troponins have been negative x 3. Patient reports no chest pain today. He was concerned about having a stress test which will not be done at this time. ROS: [No fever, chills, or rigors] [no cough, phlegm, or expectoration] [no nausea, vomiting, or diarrhea] [no hematuria, dysuria] [no musculoskelatal complaints] [no strokes or seizures] [no skin lesions] EXAMINATION: GENERAL: Well-appearing, well-nourished and in no acute distress. NECK: Supple without JVD or thyromegaly. LUNGS: Breath sounds clear to auscultation bilaterally. Respiration equal and unlabored. No wheezes, rales or rhonchi. HEART: Regular rate and rhythm without murmurs, rubs or gallops. S1 and S2 heard. EXTREMITIES: Normal range of motion, no edema. No clubbing or cyanosis. Peripheral pulses intact and strong. REVIEW OF LABS, ECG & MEDICAL DATA: LABS: White count 8.2, hemoglobin 12.6, platelets 213, sodium 140, potassium 4.1, BUN 19, creatinine 0.83, magnesium 2, troponin-less than 0.012 x 3 EKG: Sinus rhythm with diffuse ST elevations in leads II, 3, V3, V4, V5, V6, and ST depression in aVR. IMAGING: Chest x-ray dated 11/02/2024 shows no acute cardiopulmonary disease/process. VITALS: Temp 97.7, pulse 64, respirations 20, blood pressure 105/69, O2 saturation 95% on room air IMPRESSION: 1. Early repolarization abnormality 2. Atypical chest pain 3. History alcohol abuse PLAN: No interventions needed at this time. Discontinue nitro paste. Patient may be discharged from a cardiology standpoint. Recommend refraining from further alcohol and substance use. Thank you for the consult and allowing us to participate in the care of this patient. Past Medical History Past Medical History: Myocardial Infarction (ME), Skin Disorder Additional Past Medical History / Comment(s): "bad prostate" , eczema; ME at 24 years old, 32 years old, and 10 days ago Last Myocardial Infarction Date:: unknown History of Any Multi-Drug Resistant Organisms: None Reported Past Surgical History: Heart Catheterization With Stent Additional Past Surgical History / Comment(s): stent x1 Past Anesthesia/Blood Transfusion Reactions: No Reported Reaction Date of Last Stent Placement:: unknown Past Psychological History: ADD/ADHD, Depression, PTSD Smoking Status: Current every day smoker Past Alcohol Use History: Daily, Heavy Past Drug Use History: Cocaine, Heroin, IV Drug Use, Marijuana Medications and Allergies Home Medications Medication Instructions Recorded Confirmed Type Thiamine [Vitamin B-1] 100 mg PO DAILY tab 10/23/24 11/02/24 Rx Acetaminophen [Tylenol] 650 mg PO Q4H PRN 11/02/24 11/02/24 History Calcium Phos/D3/Magnesium/Zinc 1 tab PO TID PRN 11/02/24 11/02/24 History [Tgmjski-Hnz-Fcao-Vitamin D3] Chlorpheniramine Maleate 4 mg PO Q4H PRN 11/02/24 11/02/24 History [Chlor-Trimeton] Hyoscyamine Sulfate [Levsin] 0.125 mg PO QID PRN 11/02/24 11/02/24 History Loperamide HCl [Imodium A-D] 4 mg PO QID PRN MDD 16mg 11/02/24 11/02/24 History Multivitamins, Thera [Multivitamin 1 tab PO DAILY 11/02/24 11/02/24 History (formulary)] Mylanta Regular Strength 30 ml PO Q4H PRN 11/02/24 11/02/24 History guaiFENesin [guaiFENesin Oral 200 mg PO Q4H PRN 11/02/24 11/02/24 History Solution] ondansetron HCL [Zofran] 8 mg PO Q6H PRN 11/02/24 11/02/24 History Allergies Allergy/AdvReac Type Severity Reaction Status Date / Time ibuprofen [From Motrin] Allergy Rash/Hives Verified 11/02/24 11:06 Physical Exam Vitals: Vital Signs Temp Pulse Pulse Resp BP BP Pulse Ox 11/03/24 06:26 97.7 F 95 11/03/24 00:06 97.4 F L 64 20 105/69 94 L 11/02/24 18:55 98 F 79 18 106/74 97 11/02/24 16:17 98.1 F 73 19 110/72 99 11/02/24 15:50 98.0 F 89 14 107/79 99 11/02/24 15:13 84 14 107/79 100 11/02/24 12:14 75 14 125/45 98 11/02/24 11:27 73 14 115/85 99 11/02/24 10:49 83 15 111/90 99 11/02/24 10:35 97.8 F 80 16 114/90 100 Intake and Output 11/02/24 11/03/24 11/03/24 22:59 06:59 14:59 Output Total 500 800 Balance -500 -800 Output: Urine 500 800 Other: Voiding Method Toilet Urinal Weight 77.111 kg Results 11/03/24 06:47 11/03/24 06:47 Cardiac Enzymes 11/02/24 11/02/24 11/02/24 Range/Units 10:56 10:56 14:18 AST 29 (17-59) U/L Troponin I <0.012 <0.012 (0.000-0.034) ng/mL 11/02/24 Range/Units 17:07 AST (17-59) U/L Troponin I <0.012 (0.000-0.034) ng/mL Coagulation 11/02/24 Range/Units 10:56 PT 10.1 (10.0-12.5) sec APTT 24.2 (22.0-30.0) sec CBC 11/02/24 11/03/24 Range/Units 10:56 06:47 WBC 7.2 8.2 (3.8-10.6) k/uL RBC 4.64 4.39 (4.30-5.90) m/uL Hgb 13.0 12.6 L (13.0-17.5) gm/dL Hct 39.3 38.6 L (39.0-53.0) % Plt Count 230 213 (150-450) k/uL Comprehensive Metabolic Panel 11/02/24 11/03/24 Range/Units 10:56 06:47 Sodium 140 138 (137-145) mmol/L Potassium 4.1 4.3 (3.5-5.1) mmol/L Chloride 104 105 (98-107) mmol/L Carbon Dioxide 23 28 (22-30) mmol/L BUN 19 14 (9-20) mg/dL Creatinine 0.83 0.85 (0.66-1.25) mg/dL Glucose 95 73 L (74-99) mg/dL Calcium 10.2 9.1 (8.4-10.2) mg/dL AST 29 (17-59) U/L ALT 24 (4-49) U/L Alkaline Phosphatase 62 (38-126) U/L Total Protein 7.0 (6.3-8.2) g/dL Albumin 4.4 (3.5-5.0) g/dL Current Medications Generic Name Dose Route Start Last Admin Trade Name Freq PRN Reason Stop Dose Admin Acetaminophen 650 mg 11/02/24 16:57 Acetaminophen Tab 325 Mg Tab PO Q6HR PRN Pain or Fever > 100.5 Hydrocodone Bitart/Acetaminophen 1 each 11/02/24 16:59 11/02/24 17:24 Hydrocodone/Apap 5-325mg 1 Each Tab PO 1 each Q6HR PRN Administration Pain Al Hydroxide/Mg Hydroxide 30 ml 11/02/24 16:57 Mag Hydrox/Al Hydrox/Simeth 30 Ml Cup PO Q4H PRN GI Upset Aspirin 325 mg 11/03/24 09:00 Aspirin 325 Mg Tab PO DAILY GREG Diphenhydramine HCl 25 mg 11/02/24 16:57 Diphenhydramine 25 Mg Cap PO Q4H PRN withdrawl/allergy symptoms Guaifenesin 200 mg 11/02/24 16:57 Guaifenesin Syrup 100mg/5ml 200 Mg/10 Ml Cup PO Q4H PRN cough/congestion Hyoscyamine 0.125 mg 11/02/24 16:57 Hyoscyamine Sulfate 0.125 Mg Tab PO QID PRN withdrawl symptoms Ketorolac Tromethamine 15 mg 11/02/24 20:52 Ketorolac 15 Mg/Ml 1 Ml Vial IVP 11/07/24 20:52 Q6HR PRN Pain Loperamide HCl 4 mg 11/02/24 16:57 Loperamide 2 Mg Cap PO QID PRN Diarrhea Multivitamins 1 each 11/03/24 09:00 Multivitamins, Thera 1 Each Tab PO DAILY GREG Ondansetron HCl 8 mg 11/02/24 16:57 Ondansetron 4 Mg Tab PO Q6H PRN Nausea Thiamine HCl 100 mg 11/03/24 09:00 Thiamine 100 Mg Tab PO DAILY GREG Intake and Output 11/02/24 11/03/24 11/03/24 22:59 06:59 14:59 Output Total 500 800 Balance -500 -800 Output: Urine 500 800 Other: Voiding Method Toilet Urinal Weight 77.111 kg 11/03/24 06:47 11/03/24 06:47
[2024-11-03 08:09] VITALS: BP 106/69; PULSE 75; RESP 17; TEMP 98.3
[2024-11-03] MEDS: MULTIVITAMINS, THERA 1 EACH TAB PO SCH (09:00)
[2024-11-03] MEDS: THIAMINE 100 MG TAB PO SCH (09:00)
[2024-11-03] MEDS: ASPIRIN 325 MG TAB PO SCH (09:00)
[2024-11-03 13:09] LABS: Chol/HDL Ratio 2.93 Ratio; LDL Cholesterol,Calculated 51.7 mg/dL (0.0-131.0); VLDL Calculation 19.38 mg/dL (5.00-40.00)
--- NOTE | 2024-11-03 14:11 | P.HPIM ---
History of Present Illness H&P Date: 11/02/24 Chief Complaint: Chest pain 44-year-old male who presents to the emergency department from [facility]. Patient states he has had multiple heart attacks in the past. Patient states he has never had a stent placed. Patient states he has been in [place] over a week for alcohol abuse. Patient comes in today because he started having chest pain that radiated down his left arm and he said he was a little short of breath. Patient states nitroglycerin that they gave him in the ambulance took most of the pain away. Patient denies any fever chi lls or cough. Patient denies any abdominal pain patient [place] nausea or vomiting. LABS: White count 8.2, hemoglobin 12.6, platelets 213, sodium 140, potassium 4.1, BUN 19, creatinine 0.83, magnesium 2, troponin-less than 0.012 x 3 EKG: Sinus rhythm with diffuse ST elevations in leads II, 3, V3, V4, V5, V6, and ST depression in aVR. IMAGING: Chest x-ray dated 11/02/2024 shows no acute cardiopulmonary disease/process. VITALS: Temp 97.7, pulse 64, respirations 20, blood pressure 105/69, O2 saturation 95% on room air Review of Systems REVIEW OF SYSTEMS: CONSTITUTIONAL: No fever, no malaise, no fatigue. HEENT: No recent visual problems or hearing problems. Denied any sore throat. CARDIOVASCULAR: No chest pain, orthopnea, PND, no palpitations, no syncope. PULMONARY: No shortness of breath, no cough, no hemoptysis. GASTROINTESTINAL: No diarrhea, no nausea, no vomiting, no abdominal pain. NEUROLOGICAL: No headaches, no weakness, no numbness. HEMATOLOGICAL: Denies any bleeding or petechiae. GENITOURINARY: Denies any burning micturition, frequency, or urgency. MUSCULOSKELETAL/RHEUMATOLOGICAL: Denies any joint pain, swelling, or any muscle pain. ENDOCRINE: Denies any polyuria or polydipsia. The rest of the 14-point review of systems is negative. Past Medical History Past Medical History: Myocardial Infarction (ID), Skin Disorder Additional Past Medical History / Comment(s): "bad prostate" , eczema; ID at 24 years old, 32 years old, and 10 days ago Last Myocardial Infarction Date:: unknown History of Any Multi-Drug Resistant Organisms: None Reported Past Surgical History: Heart Catheterization With Stent Additional Past Surgical History / Comment(s): stent x1 Past Anesthesia/Blood Transfusion Reactions: No Reported Reaction Date of Last Stent Placement:: unknown Past Psychological History: ADD/ADHD, Depression, PTSD Smoking Status: Current every day smoker Past Alcohol Use History: Daily, Heavy Past Drug Use History: Cocaine, Heroin, IV Drug Use, Marijuana Medications and Allergies Home Medications Medication Instructions Recorded Confirmed Type Thiamine [Vitamin B-1] 100 mg PO DAILY tab 10/23/24 11/02/24 Rx Acetaminophen [Tylenol] 650 mg PO Q4H PRN 11/02/24 11/02/24 History Calcium Phos/D3/Magnesium/Zinc 1 tab PO TID PRN 11/02/24 11/02/24 History [Udzbozv-Qls-Cptl-Vitamin D3] Chlorpheniramine Maleate 4 mg PO Q4H PRN 11/02/24 11/02/24 History [Chlor-Trimeton] Hyoscyamine Sulfate [Levsin] 0.125 mg PO QID PRN 11/02/24 11/02/24 History Loperamide HCl [Imodium A-D] 4 mg PO QID PRN MDD 16mg 11/02/24 11/02/24 History Multivitamins, Thera [Multivitamin 1 tab PO DAILY 11/02/24 11/02/24 History (formulary)] Mylanta Regular Strength 30 ml PO Q4H PRN 11/02/24 11/02/24 History guaiFENesin [guaiFENesin Oral 200 mg PO Q4H PRN 11/02/24 11/02/24 History Solution] ondansetron HCL [Zofran] 8 mg PO Q6H PRN 11/02/24 11/02/24 History Aspirin 325 mg PO DAILY tab 11/03/24 Rx Allergies Allergy/AdvReac Type Severity Reaction Status Date / Time ibuprofen [From Motrin] Allergy Rash/Hives Verified 11/02/24 11:06 Physical Exam Vitals: Vital Signs Temp Pulse Pulse Resp BP BP Pulse Ox 11/02/24 16:17 98.1 F 73 19 110/72 99 11/02/24 15:50 98.0 F 89 14 107/79 99 11/02/24 15:13 84 14 107/79 100 11/02/24 12:14 75 14 125/45 98 11/02/24 11:27 73 14 115/85 99 11/02/24 10:49 83 15 111/90 99 11/02/24 10:35 97.8 F 80 16 114/90 100 Intake and Output 11/02/24 11/02/24 11/02/24 06:59 14:59 22:59 Output Total 425 Balance -425 Output: Urine 425 Other: Voiding Method Urinal Weight 77.111 kg 77.111 kg GENERAL: Well-appearing, well-nourished and in no acute distress. NECK: Supple without JVD or thyromegaly. LUNGS: Breath sounds clear to auscultation bilaterally. Respiration equal and unlabored. No wheezes, rales or rhonchi. HEART: Regular rate and rhythm without murmurs, rubs or gallops. S1 and S2 heard. EXTREMITIES: Normal range of motion, no edema. No clubbing or cyanosis. Peripheral pulses intact and strong. Results CBC & Chem 7: 11/03/24 06:47 11/03/24 06:47 Thrombosis Risk Factor Assmnt - Choose All That Apply Any of the Below Risk Factors Present?: Yes Each Factor Represents 1 point: Age 41-60 years Thrombosis Risk Factor Assessment Total Risk Factor Score: 1 Thrombosis Risk Factor Assessment Level: Low Risk Assessment and Plan Assessment: 1. Chest pain rule out acute coronary syndrome 2. History of alcohol abuse --Patient has been admitted to telemetry; plan to monitor EKG and trend troponin; patient reports he was recommended a stress test on last admission; we will consult cardiology and await further recommendations -Patient remains on home dose of thiamine -Further recommendations once evaluated by cardiology
== END 2024-11-03 14:19 | disposition other institution (70) ==
LOC: EC 10:34 → 6NMEDSUR 12:38
PROVIDERS: ADMIT Hospitalist; ATTEND Hospitalist
DX: R07.89 Other chest pain (principal); I25.2 Old myocardial infarction; F10.10 Alcohol abuse, uncomplicated; F17.200 Nicotine dependence, unspecified, uncomplicated; Z79.82 Long term (current) use of aspirin; Z79.899 Other long term (current) drug therapy; Z88.6 Allergy status to analgesic agent; Z95.5 Presence of coronary angioplasty implant and graft
CPT/HCPCS: 99285; 36415; 93005; 80061; 80053; 80048; 83735; 84484; 85025 ×2; 85610; 85730; 87636; 71046; G0378 ×2